=== PATIENT | male | born 1975 | race African-American/Black ===

== ENCOUNTER 2020-11-22 20:40 | Emergency (ER) | payer SELFPAY ==
[2020-11-22] MEDS ORDERED: ONDANSETRON 4 MG/2 ML (SDV) Z0FRAN IVP ONE (21:00)
[2020-11-22] MEDS ORDERED: LORazepam INJ 2 MG/ML (ATIVAN) VIAL IVP ONE (21:00)
[2020-11-22] MEDS ORDERED: fentaNYL INJ 100 MCG/2 ML AMP IVP ONE ×2 (21:00→22:00)
[2020-11-22] MEDS ORDERED: LACTATED RINGERS 1,000 ML IV SCH (21:00)
--- NOTE | 2020-11-22 21:04 | ED Abdominal Pain ---
General Chief Complaint: Abdominal/GI Problems Stated Complaint: VOMITING/ABD PAIN Source of Information: Patient Exam Limitations: No Limitations History of Present Illness Date Seen by Provider: Nov 22, 2020 Time Seen by Provider: 21:03 Initial Comments To ER with severe epigastric abdominal pain that began last night associated wit h vomiting. He is here from [place] and states that he has to go to the emergency room about twice a month when in [place]. He drinks alcohol about a bottle of whiskey daily. His last drink was 3 days ago. Timing/Duration: 1-2 Days Severity/Quality: Moderate Location: Epigastric Radiation: No Radiation Activities at Onset: None Allergies and Home Medications Allergies Coded Allergies: morphine (Verified Allergy, Unknown, 11/22/20) Patient Home Medication List Home Medication List Reviewed: Yes Review of Systems Review of Systems Constitutional: see HPI EENTM: No Symptoms Reported Respiratory: No Symptoms Reported Cardiovascular: No Symptoms Reported Gastrointestinal: See HPI, Abdominal Pain, Nausea, Vomiting Genitourinary: No Symptoms Reported Musculoskeletal: no symptoms reported Skin: no symptoms reported Psychiatric/Neurological: No Symptoms Reported Physical Exam Vital Signs Capillary Refill : Height/Weight/BMI Height: '" Weight: lbs. oz. kg; BMI Method: General Appearance: WD/WN, no apparent distress, other (Screening, wailing, vomiting only saliva into a bucket. Screams with even light touch of the abdomen or placing the sheehan of my stethoscope gently on his abdomen. Screams with IV start, screams with tourniquet application.) Neck: non-tender, full range of motion Respiratory: no respiratory distress, no accessory muscle use Cardiovascular: regular rate, rhythm, no murmur Gastrointestinal: normal bowel sounds, soft Extremities: normal range of motion, non-tender Neurologic/Psychiatric: alert, normal mood/affect, oriented x 3 Skin: normal color, warm/dry Progress/Results/Core Measures Results/Orders Lab Results Laboratory Tests Test 11/22/20 21:08 Range/Units White Blood Count 10.1 4.3-11.0 10^3/uL Red Blood Count 5.34 4.30-5.52 10^6/uL Hemoglobin 16.5 13.3-17.7 g/dL Hematocrit 49 40-54 % Mean Corpuscular Volume 92 80-99 fL Mean Corpuscular Hemoglobin 31 25-34 pg Mean Corpuscular Hemoglobin Concent 34 32-36 g/dL Red Cell Distribution Width 13.3 10.0-14.5 % Platelet Count 491 H 130-400 10^3/uL Mean Platelet Volume 8.8 L 9.0-12.2 fL Immature Granulocyte % (Auto) 0 % Neutrophils (%) (Auto) 74 42-75 % Lymphocytes (%) (Auto) 18 12-44 % Monocytes (%) (Auto) 6 0-12 % Eosinophils (%) (Auto) 1 0-10 % Basophils (%) (Auto) 0 0-10 % Neutrophils # (Auto) 7.5 1.8-7.8 10^3/uL Lymphocytes # (Auto) 1.8 1.0-4.0 10^3/uL Monocytes # (Auto) 0.7 0.0-1.0 10^3/uL Eosinophils # (Auto) 0.1 0.0-0.3 10^3/uL Basophils # (Auto) 0.0 0.0-0.1 10^3/uL Immature Granulocyte # (Auto) 0.0 0.0-0.1 10^3/uL Sodium Level 139 135-145 MMOL/L Potassium Level 3.1 L 3.6-5.0 MMOL/L Chloride Level 102 98-107 MMOL/L Carbon Dioxide Level 25 21-32 MMOL/L Anion Gap 12 5-14 MMOL/L Blood Urea Nitrogen 7 7-18 MG/DL Creatinine 0.91 0.60-1.30 MG/DL Estimat Glomerular Filtration Rate > 60 BUN/Creatinine Ratio 8 Glucose Level 105 70-105 MG/DL Calcium Level 9.9 8.5-10.1 MG/DL Corrected Calcium 9.5 8.5-10.1 MG/DL Total Bilirubin 0.7 0.1-1.0 MG/DL Aspartate Amino Transf (AST/SGOT) 24 5-34 U/L Alanine Aminotransferase (ALT/SGPT) 29 0-55 U/L Alkaline Phosphatase 84 40-136 U/L C-Reactive Protein High Sensitivity 0.02 0.00-0.50 MG/DL Total Protein 8.5 H 6.4-8.2 GM/DL Albumin 4.5 3.2-4.5 GM/DL Lipase 23 8-78 U/L Salicylates Level < 5.0 L 5.0-20.0 MG/DL Acetaminophen Level < 10 L 10-30 UG/ML Serum Alcohol 14 H <10 MG/DL My Orders Orders - GABINO ANGUIANO APRN Lorazepam Injection (Ativan Injection) (11/22/20 21:00) Fentanyl Inj (Sublimaze Injection) (11/22/20 21:00) Lactated Ringers (Lr 1000 Ml Iv Solution (11/22/20 21:00) Ondansetron Injection (Zofran Injectio (11/22/20 21:00) Cbc With Automated Diff (11/22/20 20:51) Comprehensive Metabolic Panel (11/22/20 20:51) Alcohol (11/22/20 20:51) Ua Culture If Indicated (11/22/20 20:51) Drug Screen Stat (Urine) (11/22/20 20:51) Ed Iv/Invasive Line Start (11/22/20 20:51) Protime With Inr (11/22/20 20:51) Hs C Reactive Protein (11/22/20 20:51) Ct Abdomen/Pelvis Wo (11/22/20 20:51) Salicylate (11/22/20 21:31) Acetaminophen (11/22/20 21:31) Antacid Suspension (Mylanta Suspension (11/22/20 22:00) Lidocaine 2% Viscous 15 Ml (Xylocaine Vi (11/22/20 22:00) Lipase (11/22/20 21:53) Fentanyl Inj (Sublimaze Injection) (11/22/20 22:00) Haloperidol Injection (Haldol Injectio (11/22/20 22:30) Medications Given in ED Current Medications Medications Dose Ordered Sig/Wade Route Start Time Stop Time Status Last Admin Dose Admin Al Hydrox/Mg Hydrox/Simethicone 30 ml ONCE ONCE PO 11/22/20 22:00 11/22/20 22:01 DC 11/22/20 22:00 30 ML Fentanyl Citrate 50 mcg ONCE ONCE IVP 11/22/20 22:00 11/22/20 22:01 DC 11/22/20 22:00 50 MCG Fentanyl Citrate 75 mcg ONCE ONCE IVP 11/22/20 21:00 11/22/20 21:01 DC 11/22/20 21:09 75 MCG Lidocaine HCl 15 ml ONCE ONCE PO 11/22/20 22:00 11/22/20 22:01 DC 11/22/20 22:00 15 ML Lorazepam 1 mg ONCE ONCE IVP 11/22/20 21:00 11/22/20 21:01 DC 11/22/20 21:09 1 MG Ondansetron HCl 8 mg ONCE ONCE IVP 11/22/20 21:00 11/22/20 21:01 DC 11/22/20 21:09 8 MG Departure Communication (Admissions) 2154- patient's significant other who brought him to the ER reports that he was upset earlier today when he called her and told her that he had taken 2 of all of his pills. She believes this is a cry for help and that he is suicidal. However she states that he never actually said that. I discussed this with him and he states that he took 2 of his anxiety medications because he is very an xious but he was not trying to harm himself. He does not want to harm himself now nor does he want to harm anyone else. At this time he is feeling much better after the Ativan and fentanyl though he still has some persistent pain. CT is normal, labs unremarkable, lipase is pending. 2216-patient states that he is feeling a little better though he still has some pain. He states that typically he gets her medications through his IV and 1 dose is typically sufficient and lasts him for several days. I asked him if he remembers the name and he states "no". He states he cannot take any medication with morphine in it. I asked if the medication that he gets is called Haldol and he states "you know I think that might be it". We will try a dose of this. NAME: [facility]ON[facility]ÁLEZ [facility] REC#: [id number] PT STATUS: REG ER : 1975 PHYSICIAN: GABINO ANGUIANO APRN ADMIT DATE: 11/22/20/ER Draft Date of Exam:11/22/20 CT ABDOMEN/PELVIS WO PROCEDURE: CT abdomen and pelvis without contrast. TECHNIQUE: Multiple contiguous axial images were obtained through the abdomen and pelvis without the use of intravenous contrast. Auto Exposure Controls were utilized during the CT exam to meet ALARA standards for radiation dose reduction. INDICATION: Upper abdominal pain. COMPARISON: None. FINDINGS: The lung bases are clear. The liver, gallbladder, pancreas, spleen, adrenals, kidneys, collecting systems, bladder and appendix are negative on this noncontrast exam. No free intraperitoneal air or fluid. No lymphadenopathy. No evidence of bowel obstruction. No acute osseous finding. IMPRESSION: No acute CT findings in the abdomen or pelvis on this noncontrast exam. Dictated on workstation # [id number] Dict: 11/22/202136 Trans: 11/22/202141 [facility] [id number] Interpreted by: KELLY PRAJAPATI MD Electronically signed by: Impression Primary Impression: Nausea and vomiting Additional Impression: Abdominal pain Disposition: HOME, SELF-CARE Condition: Stable Departure-Patient Inst. Decision time for Depature: 21:46 Patient Instructions: No Instuctions Given GABINO ANGUIANO [employer] O[employer]ATOR Nov 22, 2020 21:04
[2020-11-22 21:17] LABS: BASOPHILS % (AUTO) 0 % (0-10); EOSINOPHILS # (AUTO) 0.1 10^3/uL (0.0-0.3); EOSINOPHILS % (AUTO) 1 % (0-10); HEMATOCRIT 49 % (40-54); HEMOGLOBIN 16.5 g/dL (13.3-17.7); LYMPHOCYTES # (AUTO) 1.8 10^3/uL (1.0-4.0); LYMPHOCYTES % (AUTO) 18 % (12-44); MEAN CORPUSCULAR HEMOGLOBIN 31 pg (25-34); MEAN CORPUSCULAR HGB CONC 34 g/dL (32-36); MEAN CORPUSCULAR VOLUME 92 fL (80-99); MEAN PLATELET VOLUME 8.8 fL (9.0-12.2); MONOCYTES # (AUTO) 0.7 10^3/uL (0.0-1.0); MONOCYTES % (AUTO) 6 % (0-12); NEUTROPHILS # (AUTO) 7.5 10^3/uL (1.8-7.8); NEUTROPHILS % (AUTO) 74 % (42-75); PLATELET COUNT 491 10^3/uL (130-400); WHITE BLOOD COUNT 10.1 10^3/uL (4.3-11.0)
[2020-11-22 21:42] LABS: ALANINE AMINOTRANSFERASE 29 U/L (0-55); ALBUMIN 4.5 GM/DL (3.2-4.5); ALKALINE PHOSPHATASE 84 U/L (40-136); BILIRUBIN,TOTAL 0.7 MG/DL (0.1-1.0); BUN/CREATININE RATIO 8; CALCIUM 9.9 MG/DL (8.5-10.1); CARBON DIOXIDE 25 MMOL/L (21-32); CHLORIDE 102 MMOL/L (98-107); CREATININE SERUM 0.91 MG/DL (0.60-1.30); GFR ESTIMATED > 60; GLUCOSE 105 MG/DL (70-105); POTASSIUM 3.1 MMOL/L (3.6-5.0); SODIUM 139 MMOL/L (135-145); TOTAL PROTEIN 8.5 GM/DL (6.4-8.2)
--- NOTE | 2020-11-22 21:42 | Diagnostic Imaging Report ---
PROCEDURE: CT abdomen and pelvis without contrast. TECHNIQUE: Multiple contiguous axial images were obtained through the abdomen and pelvis without the use of intravenous contrast. Auto Exposure Controls were utilized during the CT exam to meet ALARA standards for radiation dose reduction. INDICATION: Upper abdominal pain. COMPARISON: None. FINDINGS: The lung bases are clear. The liver, gallbladder, pancreas, spleen, adrenals, kidneys, collecting systems, bladder and appendix are negative on this noncontrast exam. No free intraperitoneal air or fluid. No lymphadenopathy. No evidence of bowel obstruction. No acute osseous finding. IMPRESSION: No acute CT findings in the abdomen or pelvis on this noncontrast exam. Dictated by: Dictated on workstation # [id number]
[2020-11-22 21:54] LABS: SALICYLATE < 5.0 MG/DL (5.0-20.0)
[2020-11-22 21:55] LABS: ACETAMINOPHEN < 10 UG/ML (10-30)
[2020-11-22] MEDS ORDERED: ANTACID SUSP 30 ML UDC (MYLANTA) PO ONE (22:00)
[2020-11-22] MEDS ORDERED: LIDOCAINE 2% VISCOUS 15 ML UDC PO ONE (22:00)
[2020-11-22] MEDS ORDERED: HALOPERIDOL 5 MG/ML (HALDOL) VIAL IV ONE (22:30)
[2020-11-22 22:50] VITALS: BP 135/59
== END 2020-11-22 22:51 | disposition home or self-care (01) ==
LOC: ER 20:43
DX: R11.2 Nausea with vomiting, unspecified (principal); R10.13 Epigastric pain
CPT/HCPCS: 74176; 80053; 83690; 85025; 86141; 99284; G0480 ×3; 36415; 80320; 80329

== ENCOUNTER 2021-02-26 18:23 | Emergency (ER) | payer SELFPAY ==
[~2021-02-26] VITALS: Ht 165 cm; Wt 81.0 kg
--- NOTE | 2021-02-26 18:44 | ED General ---
General Stated Complaint: VOMITING, WEAKNESS, BODY ACHES, CHEST PAIN, CHILLS Source of Information: Patient Exam Limitations: No Limitations (GABINO ANGUIANO APRN) History of Present Illness Date Seen by Provider: Feb 26, 2021 Time Seen by Provider: 18:43 Initial Comments To ER with vomiting, insomnia, weakness, body aches, chills. His girlfriend had Covid last week. He is not vaccinated. He has a history of cyclic vomiting syndrome when he lived in [place], he just moved to this area about 2 months ago. Timing/Duration: 1-2 Days Severity: Moderate Associated Systoms: Nausea/Vomiting (GABINO ANGUIANO APRN) Allergies and Home Medications Allergies Coded Allergies: morphine (Verified Allergy, Unknown, 11/22/20) Patient Home Medication List Home Medication List Reviewed: Yes (GABINO ANGUIANO APRN) Review of Systems Review of Systems Constitutional: see HPI EENTM: see HPI Respiratory: no symptoms reported Cardiovascular: no symptoms reported Genitourinary: no symptoms reported Musculoskeletal: no symptoms reported Skin: no symptoms reported Psychiatric/Neurological: No Symptoms Reported Hematologic/Lymphatic: No Symptoms Reported Immunological/Allergic: no symptoms reported (GABINO ANGUIANO APRN) Past Qikacqr-Oflxsk-Uvhnvl Hx Past Medical History Respiratory: No Cardiac: No Neurological: No Genitourinary: No Gastrointestinal: No Musculoskeletal: No Endocrine: No HEENT: No Cancer: No Psychosocial: Yes Anxiety, Depression Integumentary: No (GABINO ANGUIANO APRN) Physical Exam Vital Signs Vital Signs - First Documented (SAURAV PARDO MD) Vital Signs Capillary Refill : (GABINO ANGUIANO APRN) Height, Weight, BMI Height: '" Weight: lbs. oz. kg; BMI Method: General Appearance: No Apparent Distress, WD/WN Eyes: Bilateral Eye Normal Inspection, Bilateral Eye PERRL, Bilateral Eye EOMI Neck: Full Range of Motion, Normal Inspection Respiratory: Normal Breath Sounds, No Accessory Muscle Use, No Respiratory Distress Cardiovascular: Regular Rate, Rhythm, Normal Peripheral Pulses Gastrointestinal: Normal Bowel Sounds, Non Tender, Soft Neurologic/Psychiatric: Alert, Oriented x3, Other (Running, writhing, will not hold still. ) (GABINO ANGUIANO APRN) Progress/Results/Core Measures Suspected Sepsis SIRS Temperature: Pulse: Respiratory Rate: Laboratory Tests 02/26/21 18:50: White Blood Count 13.5H Blood Pressure / Mean: Laboratory Tests 02/26/21 18:50: Creatinine 1.02, Platelet Count 434H, Total Bilirubin 0.6 (GABINO ANGUIANO APRN) Results/Orders Lab Results Laboratory Tests Test 02/26/21 18:40 02/26/21 18:50 Range/Units Influenza Type A Antigen NEGATIVE NEGATIVE Influenza Type B Antigen NEGATIVE NEGATIVE White Blood Count 13.5 H 4.3-11.0 10^3/uL Red Blood Count 5.45 4.30-5.52 10^6/uL Hemoglobin 17.1 13.3-17.7 g/dL Hematocrit 50 40-54 % Mean Corpuscular Volume 92 80-99 fL Mean Corpuscular Hemoglobin 31 25-34 pg Mean Corpuscular Hemoglobin Concent 34 32-36 g/dL Red Cell Distribution Width 13.2 10.0-14.5 % Platelet Count 434 H 130-400 10^3/uL Mean Platelet Volume 9.0 9.0-12.2 fL Immature Granulocyte % (Auto) 0 % Neutrophils (%) (Auto) 90 H 42-75 % Lymphocytes (%) (Auto) 6 L 12-44 % Monocytes (%) (Auto) 3 0-12 % Eosinophils (%) (Auto) 0 0-10 % Basophils (%) (Auto) 0 0-10 % Neutrophils # (Auto) 12.2 H 1.8-7.8 10^3/uL Lymphocytes # (Auto) 0.8 L 1.0-4.0 10^3/uL Monocytes # (Auto) 0.5 0.0-1.0 10^3/uL Eosinophils # (Auto) 0.0 0.0-0.3 10^3/uL Basophils # (Auto) 0.0 0.0-0.1 10^3/uL Immature Granulocyte # (Auto) 0.1 0.0-0.1 10^3/uL Neutrophils % (Manual) 83 % Lymphocytes % (Manual) 8 % Monocytes % (Manual) 9 % Blood Morphology Comment NORMAL Erythrocyte Sedimentation Rate 1 0-15 MM/HR Sodium Level 140 135-145 MMOL/L Potassium Level 4.5 3.6-5.0 MMOL/L Chloride Level 103 98-107 MMOL/L Carbon Dioxide Level 24 21-32 MMOL/L Anion Gap 13 5-14 MMOL/L Blood Urea Nitrogen 12 7-18 MG/DL Creatinine 1.02 0.60-1.30 MG/DL Estimat Glomerular Filtration Rate 95 BUN/Creatinine Ratio 12 Glucose Level 134 H 70-105 MG/DL Calcium Level 10.7 H 8.5-10.1 MG/DL Corrected Calcium 8.5-10.1 MG/DL Total Bilirubin 0.6 0.1-1.0 MG/DL Aspartate Amino Transf (AST/SGOT) 20 5-34 U/L Alanine Aminotransferase (ALT/SGPT) 29 0-55 U/L Alkaline Phosphatase 91 40-136 U/L C-Reactive Protein High Sensitivity 0.02 0.00-0.50 MG/DL Total Protein 8.9 H 6.4-8.2 GM/DL Albumin 4.7 H 3.2-4.5 GM/DL Lipase 29 8-78 U/L Serum Alcohol < 10 <10 MG/DL (SAURAV PARDO MD) Vital Signs/I&O 02/26/21 02/26/21 02/26/21 19:01 19:01 21:59 Temp 36.1 36.1 36.1 Pulse 64 64 96 Resp 16 16 16 B/P (MAP) 160/104 160/104 (122) 158/95 Pulse Ox 99 99 98 O2 Delivery Room Air Room Air Room Air 02/26/21 23:59 Intake Total 1000 ml Balance 1000 ml (SAURAV PARDO MD) Vital Signs/I&O Capillary Refill : (GABINO ANGUIANO APRN) Departure Communication (Admissions) 2051-sleeping at this time. Awakens to verbal stimuli, states that he feels better. We will discharge to home. (GABINO ANGUIANO APRN) Impression Primary Impression: Nausea and vomiting Disposition: HOME, SELF-CARE Condition: Stable Departure-Patient Inst. Decision time for Depature: 20:52 (GABINO ANGUIANO APRN) Patient Instructions: No Instuctions Given ATTENDING PHYSICIAN NOTE: I was physically present as attending physician in the emergency department during the care of this patient, but I was not directly involved in the decision making or delivery of care for this patient. (SAURAV PARDO MD) GABINO ANGUIANO APRN Feb 26, 2021 18:44 SAURAV PARDO MD Feb 27, 2021 08:40
[2021-02-26] MEDS: diphenhydrAMINE 50 MG/ML INJ (BENADRYL) IVP ONE (18:51)
[2021-02-26] MEDS: NS IV 1000 ML 1,000 ML IV SCH (18:51)
[2021-02-26] MEDS: HALOPERIDOL 5 MG/ML (HALDOL) VIAL IV ONE (18:52)
[2021-02-26 19:02] LABS: BASOPHILS % (AUTO) 0 % (0-10); EOSINOPHILS % (AUTO) 0 % (0-10); HEMATOCRIT 50 % (40-54); HEMOGLOBIN 17.1 g/dL (13.3-17.7); LYMPHOCYTES # (AUTO) 0.8 10^3/uL (1.0-4.0); LYMPHOCYTES % (AUTO) 6 % (12-44); MEAN CORPUSCULAR HEMOGLOBIN 31 pg (25-34); MEAN CORPUSCULAR HGB CONC 34 g/dL (32-36); MEAN CORPUSCULAR VOLUME 92 fL (80-99); MONOCYTES # (AUTO) 0.5 10^3/uL (0.0-1.0); MONOCYTES % (AUTO) 3 % (0-12); NEUTROPHILS # (AUTO) 12.2 10^3/uL (1.8-7.8); NEUTROPHILS % (AUTO) 90 % (42-75); PLATELET COUNT 434 10^3/uL (130-400); WHITE BLOOD COUNT 13.5 10^3/uL (4.3-11.0)
[2021-02-26 19:11] LABS: ALBUMIN 4.7 GM/DL (3.2-4.5); CHLORIDE 103 MMOL/L (98-107); POTASSIUM 4.5 MMOL/L (3.6-5.0); SODIUM 140 MMOL/L (135-145)
[2021-02-26 19:12] LABS: CALCIUM 10.7 MG/DL (8.5-10.1)
[2021-02-26 19:14] LABS: GLUCOSE 134 MG/DL (70-105); TOTAL PROTEIN 8.9 GM/DL (6.4-8.2)
[2021-02-26 19:15] LABS: BILIRUBIN,TOTAL 0.6 MG/DL (0.1-1.0); CARBON DIOXIDE 24 MMOL/L (21-32)
[2021-02-26 19:17] LABS: ALKALINE PHOSPHATASE 91 U/L (40-136); CREATININE SERUM 1.02 MG/DL (0.60-1.30); GFR ESTIMATED 95
[2021-02-26 19:18] LABS: BUN/CREATININE RATIO 12
[2021-02-26 19:19] LABS: LYMPHOCYTES % (MANUAL) 8 %; MONOCYTES % (MANUAL) 9 %; NEUTROPHILS % (MANUAL) 83 %
[2021-02-26 19:20] LABS: ALANINE AMINOTRANSFERASE 29 U/L (0-55); RBC MORPH NORMAL
[2021-02-26 19:21] LABS: LIPASE 29 U/L (8-78)
[2021-02-26 19:29] LABS: ERYTHROCYTE SEDIMENTATION RATE 1 MM/HR (0-15)
--- NOTE | 2021-02-26 20:15 | Diagnostic Imaging Report ---
INDICATION: Weakness AP view of the chest is obtained. COMPARISON: No previous study is available for comparison at this time. FINDINGS: Heart size and pulmonary vasculature are within normal limits, and the lungs are clear, bilaterally. IMPRESSION: Unremarkable chest. Dictated by: Dictated on workstation # [id number]
[2021-02-26 21:59] VITALS: BP 158/95
== END 2021-02-26 21:59 | disposition home or self-care (01) ==
LOC: EDUNIT# 18:23 → ER 18:27
DX: R11.2 Nausea with vomiting, unspecified (principal); Z20.822 Contact with and (suspected) exposure to COVID-19
CPT/HCPCS: 71045; 80053; 83690; 85007; 85027; 85652; 86141; 87635; 87804; 93005; 99284; G0480; 36415; 80320

== ENCOUNTER 2021-03-07 08:52 | Emergency (ER) | payer SELFPAY ==
[~2021-03-07] VITALS: Ht 165 cm; Wt 74.0 kg
[2021-03-07] MEDS ORDERED: LACTATED RINGERS 1,000 ML IV ONE (09:00)
[2021-03-07] MEDS ORDERED: PANTOPRAZOLE 40 MG (PROTONIX) VIAL IV ONE (09:00)
[2021-03-07] MEDS ORDERED: fentaNYL INJ 100 MCG/2 ML AMP IVP ONE (09:00)
[2021-03-07] MEDS ORDERED: ONDANSETRON 4 MG/2 ML (SDV) Z0FRAN IVP ONE (09:00)
--- NOTE | 2021-03-07 09:15 | ED Abdominal Pain ---
General Chief Complaint: Abdominal/GI Problems Stated Complaint: VOMITTING Nursing Triage Note: ARRIVED VIA EMS FROM HOME WITH COMPLAINTS OF N/V. PT YELLING AND VERY ANXIOUS Source of Information: Patient, EMS Exam Limitations: No Limitations History of Present Illness Date Seen by Provider: Mar 07, 2021 Time Seen by Provider: 08:50 Initial Comments Patient to the ER by EMS from home with chief complaint that he was very anxious and yelling per EMS. Complaining of epigastric abdominal pain severe 10 out of 10 as well as vomiting since last night. He been having episodes of this for years. He had a endoscopy in the that demonstrated stomach ulcers. He has not taken anything for it today. He says he was here in the ER recently and they gave him some medicine through his IV which helped his pain. EMS was unable to establish an IV on route. According to previous visits he has a history of cyclical vomiting and recently moved here from [place], [place]. Patient states he drinks a bottle of whiskey daily. He had a negative CT of his abdomen and pelvis for similar presentation and November, 4 months ago. He has responded well to Haldol in the past for his cyclical vomiting. Allergies and Home Medications Allergies Coded Allergies: morphine (Verified Allergy, Unknown, 11/22/20) Patient Home Medication List Home Medication List Reviewed: Yes Review of Systems Review of Systems Constitutional: No chills, No diaphoresis EENTM: No Blurred Vision, No Double Vision Respiratory: Denies Cough, Denies Shortness of Air Cardiovascular: Denies Chest Pain, Denies Edema Gastrointestinal: See HPI, Abdominal Pain; Denies Constipated; Nausea, Poor Fluid Intake, Vomiting Genitourinary: Denies Burning, Denies Discharge Musculoskeletal: No back pain, No joint pain Psychiatric/Neurological: Anxiety All Other Systems Reviewed Negative Unless Noted: Yes Past Npelnlh-Dyazlb-Aozbrd Hx Patient Social History Tobacco Use?: Yes Tobacco type used: Cigarettes Smoking Status: Current Everyday Smoker (Half pack a day) Alcohol Use?: Yes Alcohol type: Hard Liquor Alcohol Frequency: Couple times a week Past Medical History Surgery/Hospitalization HX: Denies. Respiratory: No Cardiac: No Neurological: No Genitourinary: No Gastrointestinal: No Musculoskeletal: No Endocrine: No HEENT: No Cancer: No Psychosocial: Yes Anxiety, Depression Integumentary: No Physical Exam Vital Signs Vital Signs - First Documented 03/07/21 09:00 Temp 36.2 Pulse 81 Resp 16 B/P (MAP) 143/75 (97) Pulse Ox 98 O2 Delivery Room Air Capillary Refill : Less Than 3 Seconds Height/Weight/BMI Height: '" Weight: lbs. oz. kg; 27.00 BMI Method: General Appearance: moderate distress, thin HEENT: PERRL/EOMI; No pharynx normal (Dry oral mucosa) Neck: full range of motion, supple, normal inspection Respiratory: lungs clear, normal breath sounds, no respiratory distress, no accessory muscle use Cardiovascular: normal peripheral pulses, regular rate, rhythm Gastrointestinal: normal bowel sounds, guarding, tenderness, other (Retching, producing small amounts of spittle or saliva.) Extremities: normal range of motion, non-tender, normal inspection, normal capillary refill Neurologic/Psychiatric: alert, oriented x 3, other (Anxious, screaming with all interventions, cooperative) Skin: normal color, warm/dry Progress/Results/Core Measures Results/Orders Lab Results Laboratory Tests Test 03/07/21 09:00 Range/Units White Blood Count 12.0 H 4.3-11.0 10^3/uL Red Blood Count 4.97 4.30-5.52 10^6/uL Hemoglobin 15.5 13.3-17.7 g/dL Hematocrit 46 40-54 % Mean Corpuscular Volume 93 80-99 fL Mean Corpuscular Hemoglobin 31 25-34 pg Mean Corpuscular Hemoglobin Concent 34 32-36 g/dL Red Cell Distribution Width 12.8 10.0-14.5 % Platelet Count 441 H 130-400 10^3/uL Mean Platelet Volume 9.4 9.0-12.2 fL Immature Granulocyte % (Auto) 0 % Neutrophils (%) (Auto) 87 H 42-75 % Lymphocytes (%) (Auto) 8 L 12-44 % Monocytes (%) (Auto) 4 0-12 % Eosinophils (%) (Auto) 0 0-10 % Basophils (%) (Auto) 1 0-10 % Neutrophils # (Auto) 10.4 H 1.8-7.8 10^3/uL Lymphocytes # (Auto) 1.0 1.0-4.0 10^3/uL Monocytes # (Auto) 0.5 0.0-1.0 10^3/uL Eosinophils # (Auto) 0.0 0.0-0.3 10^3/uL Basophils # (Auto) 0.1 0.0-0.1 10^3/uL Immature Granulocyte # (Auto) 0.0 0.0-0.1 10^3/uL Neutrophils % (Manual) 86 % Lymphocytes % (Manual) 10 % Monocytes % (Manual) 4 % Eosinophils % (Manual) 0 % Basophils % (Manual) 0 % Band Neutrophils 0 % Blood Morphology Comment NORMAL Sodium Level 139 135-145 MMOL/L Potassium Level 3.8 3.6-5.0 MMOL/L Chloride Level 101 98-107 MMOL/L Carbon Dioxide Level 25 21-32 MMOL/L Anion Gap 13 5-14 MMOL/L Blood Urea Nitrogen 10 7-18 MG/DL Creatinine 0.93 0.60-1.30 MG/DL Estimat Glomerular Filtration Rate 106 BUN/Creatinine Ratio 11 Glucose Level 116 H 70-105 MG/DL Calcium Level 10.3 H 8.5-10.1 MG/DL Corrected Calcium 10.1 8.5-10.1 MG/DL Total Bilirubin 0.5 0.1-1.0 MG/DL Aspartate Amino Transf (AST/SGOT) 20 5-34 U/L Alanine Aminotransferase (ALT/SGPT) 22 0-55 U/L Alkaline Phosphatase 63 40-136 U/L C-Reactive Protein High Sensitivity 0.02 0.00-0.50 MG/DL Total Protein 7.7 6.4-8.2 GM/DL Albumin 4.3 3.2-4.5 GM/DL Lipase 32 8-78 U/L Serum Alcohol < 10 <10 MG/DL My Orders Orders - THOMAS PLAZA Ed Iv/Invasive Line Start (03/07/21 09:00) Lactated Ringers (Lr 1000 Ml Iv Solution (03/07/21 09:00) Fentanyl Inj (Sublimaze Injection) (03/07/21 09:00) Ondansetron Injection (Zofran Injectio (03/07/21 09:00) Pantoprazole Injection (Protonix Injecti (03/07/21 09:00) Cbc With Automated Diff (03/07/21 09:00) Comprehensive Metabolic Panel (03/07/21 09:00) Hs C Reactive Protein (03/07/21 09:00) Ua Culture If Indicated (03/07/21 09:00) Drug Screen Stat (Urine) (03/07/21 09:00) Alcohol (03/07/21 09:00) Lipase (03/07/21 09:00) Droperidol Inj (Ed Only) (Inapsine Inj ( (03/07/21 09:45) Diphenhydramine Injection (Benadryl Inje (03/07/21 09:45) Manual Differential (03/07/21 09:00) Medications Given in ED Current Medications Medications Dose Ordered Sig/Wade Route Start Time Stop Time Status Last Admin Dose Admin Diphenhydramine HCl 25 mg ONCE ONCE IVP 03/07/21 09:45 03/07/21 09:46 DC 03/07/21 09:47 25 MG Droperidol 2.5 mg ONCE ONCE IV 03/07/21 09:45 03/07/21 09:46 DC 03/07/21 09:49 2.5 MG Fentanyl Citrate 50 mcg ONCE ONCE IVP 03/07/21 09:00 03/07/21 09:04 DC 03/07/21 09:12 50 MCG Lactated Ringer's 1,000 ml @ 0 mls/hr Q0M ONCE IV 03/07/21 09:00 03/07/21 09:04 DC 03/07/21 09:16 1,000 MLS/HR Ondansetron HCl 8 mg ONCE ONCE IVP 03/07/21 09:00 03/07/21 09:04 DC 03/07/21 09:13 8 MG Pantoprazole 40 mg ONCE ONCE IV 03/07/21 09:00 03/07/21 09:04 DC 03/07/21 09:15 40 MG Vital Signs/I&O 03/07/21 09:00 Temp 36.2 Pulse 81 Resp 16 B/P (MAP) 143/75 (97) Pulse Ox 98 O2 Delivery Room Air Progress Progress Note #1: Time: 09:14 Progress Note We will start with a round of fentanyl and Zofran and a liter of fluids. He is gotten results from Haldol so we may try droperidol if this does not relieve his symptoms. Pantoprazole IV. If we get his nausea under control we could consider a GI cocktail and set him up for follow-up with local general surgery. Progress Note #2: Time: 09:38 Progress Note After the first dose of fentanyl and Zofran the patient's pain had gone away his nausea had subsided and he had actually fallen asleep. About 20 to 30 minutes later he woke up howling in pain again. He is retching again so we will give him some droperidol and Benadryl IV. Progress Note #3: Time: 11:09 Progress Note Since the droperidol and Benadryl the patient has been sleeping comfortably with no vomiting nausea or pain. Blood work was reviewed with him and he was encouraged to follow-up with Dr. Ashley to consider EGD. We will put him on Carafate and omeprazole. Zofran. Departure Impression Primary Impression: Gastritis Qualified Codes: K29.50 - Unspecified chronic gastritis without bleeding Disposition: HOME, SELF-CARE Condition: Improved Departure-Patient Inst. Decision time for Depature: 11:10 Referrals: MYA ASHLEY,LOCAL PHYSICIAN (PCP) Primary Care Physician Patient Instructions: Gastritis (DC) Add. Discharge Instructions: If you have continued nausea you may take 1 to 2 tablets of Zofran under the tongue every 6 hours as necessary. Start taking omeprazole 20 mg twice a day for the next month to reduce stomach acid and therefore pain. Carafate half an hour before meals and at bedtime for the next 2 weeks to protect the lining of your stomach. Call Dr. Ashley, general surgery and schedule follow-up appointment in the next week or 2 to discuss whether an EGD or other work-up would be appropriate given your history of stomach ulcers. All discharge instructions reviewed with patient and/or family. Voiced understanding. Scripts Omeprazole (Omeprazole) 20 Mg Capsule.dr 20 MG PO BID for 30 Days, #60 CAP 0 Refills Prov: THOMAS PLAZA 03/07/21 Sucralfate (Carafate) 1 Gm Tablet 1 GM PO QIDACHS for 14 Days, #56 TAB 0 Refills Prov: THOMAS PLAZA 03/07/21 Ondansetron (Ondansetron Odt) 4 Mg Tab.rapdis 4-8 MG PO Q6H PRN for NAUSEA/VOMITING, #20 TAB 0 Refills Prov: THOMAS PLAZA 03/07/21 Copy Copies To 1: MYA ASHLEY TITUS J Mar 07, 2021 09:14
[2021-03-07 09:35] LABS: BASOPHILS # (AUTO) 0.1 10^3/uL (0.0-0.1); BASOPHILS % (AUTO) 1 % (0-10); EOSINOPHILS % (AUTO) 0 % (0-10); HEMATOCRIT 46 % (40-54); HEMOGLOBIN 15.5 g/dL (13.3-17.7); LYMPHOCYTES % (AUTO) 8 % (12-44); MEAN CORPUSCULAR HEMOGLOBIN 31 pg (25-34); MEAN CORPUSCULAR HGB CONC 34 g/dL (32-36); MEAN CORPUSCULAR VOLUME 93 fL (80-99); MEAN PLATELET VOLUME 9.4 fL (9.0-12.2); MONOCYTES # (AUTO) 0.5 10^3/uL (0.0-1.0); MONOCYTES % (AUTO) 4 % (0-12); NEUTROPHILS # (AUTO) 10.4 10^3/uL (1.8-7.8); NEUTROPHILS % (AUTO) 87 % (42-75); PLATELET COUNT 441 10^3/uL (130-400)
[2021-03-07 09:38] LABS: ALBUMIN 4.3 GM/DL (3.2-4.5); CHLORIDE 101 MMOL/L (98-107); POTASSIUM 3.8 MMOL/L (3.6-5.0); SODIUM 139 MMOL/L (135-145)
[2021-03-07 09:40] LABS: CALCIUM 10.3 MG/DL (8.5-10.1)
[2021-03-07 09:41] LABS: GLUCOSE 116 MG/DL (70-105); TOTAL PROTEIN 7.7 GM/DL (6.4-8.2)
[2021-03-07 09:42] LABS: CARBON DIOXIDE 25 MMOL/L (21-32)
[2021-03-07 09:43] LABS: BILIRUBIN,TOTAL 0.5 MG/DL (0.1-1.0)
[2021-03-07 09:44] LABS: ALKALINE PHOSPHATASE 63 U/L (40-136)
[2021-03-07 09:45] LABS: CREATININE SERUM 0.93 MG/DL (0.60-1.30); GFR ESTIMATED 106
[2021-03-07] MEDS ORDERED: DROPERIDOL 5 MG/2 ML (INAPSINE) ED ONLY! IV ONE (09:45)
[2021-03-07] MEDS ORDERED: diphenhydrAMINE 50 MG/ML INJ (BENADRYL) IVP ONE (09:45)
[2021-03-07 09:46] LABS: BUN/CREATININE RATIO 11
[2021-03-07 09:48] LABS: ALANINE AMINOTRANSFERASE 22 U/L (0-55); LIPASE 32 U/L (8-78)
[2021-03-07 10:36] LABS: BAND NEUTROPHILS 0 %; BASOPHILS % (MANUAL) 0 %; EOSINOPHILS % (MANUAL) 0 %; LYMPHOCYTES % (MANUAL) 10 %; MONOCYTES % (MANUAL) 4 %; NEUTROPHILS % (MANUAL) 86 %; RBC MORPH NORMAL
[2021-03-07] MEDS ORDERED: ONDA4TAB11 PO (11:16)
[2021-03-07] MEDS ORDERED: OMEP20CA18 PO (11:16)
[2021-03-07] MEDS ORDERED: SUCR1TAB36 PO (11:16)
[2021-03-07 11:21] VITALS: BP 150/82
== END 2021-03-07 11:20 | disposition home or self-care (01) ==
LOC: EDUNIT# 08:52 → ER 08:57
DX: K29.70 Gastritis, unspecified, without bleeding (principal); F17.210 Nicotine dependence, cigarettes, uncomplicated
CPT/HCPCS: 80053; 83690; 85007; 85027; 86141; 99284; G0480; 36415; 80320

== ENCOUNTER 2021-03-14 08:17 | Emergency (ER) | payer SELFPAY ==
[~2021-03-14] VITALS: Ht 165.1 cm; Wt 72.6 kg
[~2021-03-14 08:17] MED LIST: OMEP20CA18 PO; ONDA4TAB11 PO; SUCR1TAB36 PO
--- NOTE | 2021-03-14 08:28 | ED Abdominal Pain ---
General Chief Complaint: Abdominal/GI Problems Stated Complaint: VOMITING History of Present Illness Date Seen by Provider: Mar 14, 2021 Time Seen by Provider: 08:22 Initial Comments 45-year-old male presents with vomiting. Patient reports that "his ulcer is acting up". patient was seen on 03/10/2021 at [facility] with exactly the same presentation.. He was given Carafate and omeprazole at that time. Patient reports that his girlfriend kicked him out of the house and that he does not have his medications and that he just recently moved to [place]. Patient states he is having some abdominal discomfort especially in the upper quadrant. He has been vomiting today. No reports of fevers chills or other systemic complaints. Patient drinks alcohol daily and has a history of cyclic vomiting. Allergies and Home Medications Allergies Coded Allergies: morphine (Verified Allergy, Unknown, 11/22/20) Patient Home Medication List Home Medication List Reviewed: Yes Omeprazole (Omeprazole) 20 Mg Capsule.dr, 20 MG PO BID Prescribed by: THOMAS PLAZA on 03/07/21 1116 Ondansetron (Ondansetron Odt) 4 Mg Tab.rapdis, 4-8 MG PO Q6H PRN for NAUSEA/VOMITING Prescribed by: THOMAS PLAZA on 03/07/21 1116 Sucralfate (Carafate) 1 Gm Tablet, 1 GM PO QIDACHS Prescribed by: THOMAS PLAZA on 03/07/21 1116 Review of Systems Review of Systems Constitutional: No chills, No fever Respiratory: Denies Cough, Denies Shortness of Air Cardiovascular: Denies Chest Pain Gastrointestinal: Abdominal Pain, Nausea, Vomiting Genitourinary: No Symptoms Reported Musculoskeletal: no symptoms reported Skin: no symptoms reported Psychiatric/Neurological: No Symptoms Reported Endocrine: No Symptoms Reported Past Oudhmbt-Lecect-Gvpail Hx Past Medical History Surgery/Hospitalization HX: Denies. Respiratory: No Cardiac: No Neurological: No Genitourinary: No Gastrointestinal: No Musculoskeletal: No Endocrine: No HEENT: No Cancer: No Psychosocial: Yes Anxiety, Depression Integumentary: No Physical Exam Vital Signs Vital Signs - First Documented 03/14/21 08:20 Temp 36.2 Pulse 87 Resp 16 B/P (MAP) 141/107 (118) Pulse Ox 100 O2 Delivery Room Air Capillary Refill : Height/Weight/BMI Height: '" Weight: lbs. oz. kg; 27.00 BMI Method: General Appearance: mild distress Respiratory: lungs clear, normal breath sounds Cardiovascular: normal peripheral pulses, regular rate, rhythm Gastrointestinal: soft, tenderness (diffuse ) Extremities: normal range of motion, non-tender Neurologic/Psychiatric: alert, normal mood/affect, oriented x 3 Skin: normal color, warm/dry Progress/Results/Core Measures Results/Orders Lab Results Laboratory Tests Test 03/14/21 08:29 Range/Units White Blood Count 12.3 H 4.3-11.0 10^3/uL Red Blood Count 5.18 4.30-5.52 10^6/uL Hemoglobin 16.0 13.3-17.7 g/dL Hematocrit 47 40-54 % Mean Corpuscular Volume 90 80-99 fL Mean Corpuscular Hemoglobin 31 25-34 pg Mean Corpuscular Hemoglobin Concent 34 32-36 g/dL Red Cell Distribution Width 12.7 10.0-14.5 % Platelet Count 433 H 130-400 10^3/uL Mean Platelet Volume 9.2 9.0-12.2 fL Immature Granulocyte % (Auto) 0 % Neutrophils (%) (Auto) 86 H 42-75 % Lymphocytes (%) (Auto) 8 L 12-44 % Monocytes (%) (Auto) 5 0-12 % Eosinophils (%) (Auto) 0 0-10 % Basophils (%) (Auto) 0 0-10 % Neutrophils # (Auto) 10.6 H 1.8-7.8 X 10^3 Lymphocytes # (Auto) 1.0 1.0-4.0 X 10^3 Monocytes # (Auto) 0.7 0.0-1.0 X 10^3 Eosinophils # (Auto) 0.0 0.0-0.3 10^3/uL Basophils # (Auto) 0.1 0.0-0.1 10^3/uL Immature Granulocyte # (Auto) 0.0 0.0-0.1 10^3/uL Neutrophils % (Manual) 91 % Lymphocytes % (Manual) 6 % Monocytes % (Manual) 3 % Platelet Estimate INCREASED Blood Morphology Comment NORMAL Sodium Level 139 135-145 MMOL/L Potassium Level 3.7 3.6-5.0 MMOL/L Chloride Level 96 L 98-107 MMOL/L Carbon Dioxide Level 28 21-32 MMOL/L Anion Gap 15 H 5-14 MMOL/L Blood Urea Nitrogen 13 7-18 MG/DL Creatinine 0.91 0.60-1.30 MG/DL Estimat Glomerular Filtration Rate 109 BUN/Creatinine Ratio 14 Glucose Level 140 H 70-105 MG/DL Calcium Level 10.3 H 8.5-10.1 MG/DL Corrected Calcium 8.5-10.1 MG/DL Total Bilirubin 0.8 0.1-1.0 MG/DL Aspartate Amino Transf (AST/SGOT) 27 5-34 U/L Alanine Aminotransferase (ALT/SGPT) 19 0-55 U/L Alkaline Phosphatase 89 40-136 U/L Total Protein 8.7 H 6.4-8.2 GM/DL Albumin 4.9 H 3.2-4.5 GM/DL Lipase 33 8-78 U/L My Orders Orders - YING,KENISHA L DO Cbc With Automated Diff (03/14/21 08:29) Comprehensive Metabolic Panel (03/14/21 08:29) Lipase (03/14/21 08:29) Ondansetron Injection (Zofran Injectio (03/14/21 08:30) Lactated Ringers (Lr 1000 Ml Iv Solution (03/14/21 08:29) Famotidine Injection (Pepcid Injection) (03/14/21 08:29) Hyoscyamine Sl Tablet (Levsin Sl Tablet) (03/14/21 08:30) Abdomen (Kub) 1 View (03/14/21 08:29) Manual Differential (03/14/21 08:29) Diphenhydramine Injection (Benadryl Inje (03/14/21 09:00) Metoclopramide Injection (Reglan Injecti (03/14/21 09:00) Sucralfate Tablet (Carafate Tablet) (03/14/21 09:30) Medications Given in ED Current Medications Medications Dose Ordered Sig/Wade Route Start Time Stop Time Status Last Admin Dose Admin Hyoscyamine Sulfate 0.125 mg ONCE ONCE SL 03/14/21 08:30 03/14/21 08:31 DC 03/14/21 08:40 0.125 MG Ondansetron HCl 4 mg ONCE ONCE IVP 03/14/21 08:30 03/14/21 08:31 DC 03/14/21 08:39 4 MG Vital Signs/I&O 03/14/21 08:20 Temp 36.2 Pulse 87 Resp 16 B/P (MAP) 141/107 (118) Pulse Ox 100 O2 Delivery Room Air Progress Progress Note : Progress Note Patient is sleeping in room with no difficulty from following treatment. When I went in to discuss discharge planning and to prescribe him Carafate. Patient became very dramatic acting like he is in significant pain despite me having to wake him up to discuss plans with him. Patient will be discharged with a prescription for Carafate since he supposedly does not have his other one at this time.. He was offered an additional GI cocktail which he declined. Discussed with patient that I will not be providing him any narcotics. Patient should follow-up with his GI specialist or general surgeon for further outpatient management Diagnostic Imaging Diagonstic Imaging: Xray Plain Films/CT/US/NM/MRI: abdomen Comments ABDOMEN (KUB) 1 VIEW INDICATION: Vomiting KUB 8:42 AM Bowel gas pattern is normal. There are no pathologic masses or calcifications. IMPRESSION: No acute abnormalities in the abdomen. Reviewed: Reviewed by Me, Reviewed/Discussed Departure Impression Primary Impression: Alcohol-induced gastric ulcer Additional Impression: Cyclic vomiting syndrome Disposition: 01 HOME, SELF-CARE Condition: Stable Departure-Patient Inst. Referrals: NO,LOCAL PHYSICIAN (PCP/Family) Primary Care Physician Patient Instructions: Alcohol Use Disorder (DC), Gastric Ulcer ED Add. Discharge Instructions: Please follow-up with Dr. Ashley as instructed in your previous ER visit Please consider stopping alcohol use All discharge instructions reviewed with patient and/or family. Voiced unders tanding. Scripts Sucralfate (Carafate) 1 Gm/10 Ml Oral.susp 1 GM PO ACHS, #100 ML Prov: YING,KENISHA L DO 03/14/21 YING,KENISHA L DO Mar 14, 2021 08:28
[2021-03-14] MEDS ORDERED: LACTATED RINGERS 1,000 ML IV STA (08:29)
[2021-03-14] MEDS ORDERED: FAMOTIDINE 20MG/2ML IV (PEPCID) IV STA (08:29)
[2021-03-14] MEDS ORDERED: ONDANSETRON 4 MG/2 ML (SDV) Z0FRAN IVP ONE (08:30)
[2021-03-14] MEDS ORDERED: HYOSCYAMINE 0.125 MG (LEVSIN) TAB SL ONE (08:30)
--- NOTE | 2021-03-14 08:45 | Diagnostic Imaging Report ---
INDICATION: Vomiting KUB 8:42 AM Bowel gas pattern is normal. There are no pathologic masses or calcifications. IMPRESSION: No acute abnormalities in the abdomen. Dictated by: Dictated on workstation # [id number]
[2021-03-14 08:55] LABS: BASOPHILS # (AUTO) 0.1 10^3/uL (0.0-0.1); BASOPHILS % (AUTO) 0 % (0-10); EOSINOPHILS % (AUTO) 0 % (0-10); HEMATOCRIT 47 % (40-54); LYMPHOCYTES % (AUTO) 8 % (12-44); MEAN CORPUSCULAR HEMOGLOBIN 31 pg (25-34); MEAN CORPUSCULAR HGB CONC 34 g/dL (32-36); MEAN CORPUSCULAR VOLUME 90 fL (80-99); MEAN PLATELET VOLUME 9.2 fL (9.0-12.2); MONOCYTES # (AUTO) 0.7 X 10^3 (0.0-1.0); MONOCYTES % (AUTO) 5 % (0-12); NEUTROPHILS # (AUTO) 10.6 X 10^3 (1.8-7.8); NEUTROPHILS % (AUTO) 86 % (42-75); PLATELET COUNT 433 10^3/uL (130-400); WHITE BLOOD COUNT 12.3 10^3/uL (4.3-11.0)
[2021-03-14] MEDS ORDERED: METOCLOPRAMIDE INJ 10 MG/2 ML (REGLAN) IVP STA (09:00)
[2021-03-14] MEDS ORDERED: diphenhydrAMINE 50 MG/ML INJ (BENADRYL) IV STA (09:00)
[2021-03-14 09:04] LABS: ALANINE AMINOTRANSFERASE 19 U/L (0-55); ALKALINE PHOSPHATASE 89 U/L (40-136); BILIRUBIN,TOTAL 0.8 MG/DL (0.1-1.0); BUN/CREATININE RATIO 14; CALCIUM 10.3 MG/DL (8.5-10.1); CARBON DIOXIDE 28 MMOL/L (21-32); CHLORIDE 96 MMOL/L (98-107); CREATININE SERUM 0.91 MG/DL (0.60-1.30); GFR ESTIMATED 109; GLUCOSE 140 MG/DL (70-105); POTASSIUM 3.7 MMOL/L (3.6-5.0); SODIUM 139 MMOL/L (135-145)
[2021-03-14 09:05] LABS: ALBUMIN 4.9 GM/DL (3.2-4.5); LIPASE 33 U/L (8-78); TOTAL PROTEIN 8.7 GM/DL (6.4-8.2)
[2021-03-14 09:24] LABS: LYMPHOCYTES % (MANUAL) 6 %; MONOCYTES % (MANUAL) 3 %; NEUTROPHILS % (MANUAL) 91 %
[2021-03-14 09:25] LABS: PLATELET ESTIMATE INCREASED; RBC MORPH NORMAL
[2021-03-14] MEDS ORDERED: SUCRALFATE 1 GM (CARAFATE) TAB PO ONE (09:30)
[2021-03-14] MEDS ORDERED: SUCR1ORA5 PO (09:46)
[2021-03-14 09:48] VITALS: BP 148/94
== END 2021-03-14 09:53 | disposition home or self-care (01) ==
LOC: EDUNIT# 08:17 → ER FS 08:19
DX: K25.9 Gastric ulcer, unspecified as acute or chronic, without hemorrhage or perforation (principal); F10.20 Alcohol dependence, uncomplicated
CPT/HCPCS: 36415; 74018; 80053; 83690; 85007; 85027

== ENCOUNTER 2021-05-26 03:00 | Observation (INO) | payer SELFPAY ==
[~2021-05-26] VITALS: Ht 165 cm; Wt 71.9 kg
[~2021-05-26 03:00] MED LIST changes: +SUCR1ORA5 PO
[2021-05-26] MEDS ORDERED: PANTOPRAZOLE 40 MG (PROTONIX) VIAL IV ONE (03:15)
[2021-05-26] MEDS ORDERED: ONDANSETRON 4 MG/2 ML (SDV) Z0FRAN IVP ONE ×2 (03:15→04:30)
[2021-05-26] MEDS ORDERED: diphenhydrAMINE 50 MG/ML INJ (BENADRYL) IVP ONE (03:15)
[2021-05-26] MEDS ORDERED: LACTATED RINGERS 1,000 ML IV ONE ×3 (03:15→05:51)
--- NOTE | 2021-05-26 03:20 | ED GI ---
General Chief Complaint: Abdominal/GI Problems Stated Complaint: ABD PAIN Nursing Triage Note: brought in by [facility] for c/o nausea/abdominal pain. Source of Information: Patient (EXTREMELY DIFFICULT HISTORIAN), EMS, Old Records (ALL PMH IS FROM OLD RECORDS, PT IS NOT ANSWERING ANY QUESTIONS ON ARRIVAL) History of Present Illness Date Seen by Provider: May 26, 2021 Time Seen by Provider: 03:02 Initial Comments PT ARRIVES VIA EMS FROM HOME C/O ABDOMINAL PAIN AND NAUSEA/VOMITING SINCE YESTERDAY HAS VOMITED UNKNOWN 3 OF TIMES. EMS REPORT SMALL AMOUNT OF CLEAR EMESIS NOTED BY THEM. PT STATES LAST BM WAS YESTERDAY NO FEVER URINATING NORMALLY STATES HE HAS ULCERS PT WILL NOT STATE IF OR WHAT HE TAKES FOR HIS STOMACH UNABLE TO OBTAIN ANY OTHER INFORMATION FROM PT OR ANY PAST MEDICAL HISTORY OR IF HE TAKES ANY MEDICATIONS AT ALL HAS HISTORY OF ALCOHOL ABUSE--STATES SHE WOULD DRINK LARGE AMOUNTS OF HARD LIQUOR + BEER EVERY DAY. CLAIMS HE HAS NOT HAD ANY ALCOHOL IN 2 MONTHS DENIES ANY DRUG USE, INCLUDING DENIES MARIJUANA USE ON DIRECT QUESTIONING PT STATES HIS GIRLFRIEND'S DAUGHTER WAS SENT HOME FROM SCHOOL THIS WEEK FOR COVID, AND HE HAS BEEN AROUND HER. PT DENIES ANY RESPIRATORY SYMPTOMS PT HAS NOT HAD COVID-19 VACCINE FIRST VISIT HERE WAS 11/22/20 AND HAS HAD 5 VISITS SINCE THEN--ALL FOR THIS SAME COMPLAINT PT REPORTEDLY MOVED TO THIS AREA FROM [place] A FEW MONTHS AGO. PCP: [facility], STATES HE HAS NOT BEEN THERE RECENTLY Allergies and Home Medications Allergies Coded Allergies: morphine (Verified Allergy, Unknown, 11/22/20) Patient Home Medication List Home Medication List Reviewed: Yes Omeprazole (Omeprazole) 20 Mg Capsule.dr, 20 MG PO BID Prescribed by: THOMAS PLAZA on 03/07/21 111 Ondansetron (Ondansetron Odt) 4 Mg Tab.rapdis, 4-8 MG PO Q6H PRN for NAUSEA/VOMITING Prescribed by: THOMAS PLAZA on 03/07/21 111 Sucralfate (Carafate) 1 Gm Tablet, 1 GM PO QIDACHS Prescribed by: THOMAS PLAZA on 03/07/21 111 Sucralfate (Carafate) 1 Gm/10 Ml Oral.susp, 1 GM PO ACHS Prescribed by: KENISHA YING on 03/14/21 0946 Review of Systems Review of Systems Constitutional: no symptoms reported Respiratory: No Symptoms Reported Cardiovascular: No Symptoms Reported Gastrointestinal: See HPI, Abdominal Pain, Nausea, Vomiting Past Awgafcq-Pzcexl-Flxikk Hx Patient Social History Tobacco Use?: Yes Tobacco type used: Cigarettes Substance use?: Yes Substance type: Marijuana Additional substance use comme: 05/26/21 UDS + THC, BARBITURATES, TRICYCLICS Alcohol Use?: Yes Alcohol type: Beer, Hard Liquor Alcohol Frequency: Daily Pt feels they are or have been: No Past Medical History Surgery/Hospitalization HX: anx/dep, alcohol use, gastric ulcera, cyclic vomitting syndrome Surgeries: No Respiratory: No Cardiac: No Neurological: No Genitourinary: No Gastrointestinal: Yes (CHRONIC NAUSEA/VOMITING/ABDOMINAL PAIN ) Musculoskeletal: No Endocrine: No HEENT: No Cancer: No Psychosocial: Yes (POLYSUBSTANCE ABUSE) Anxiety, Depression Integumentary: No Physical Exam Vital Signs Vital Signs - First Documented 05/26/21 03:02 Temp 35.3 Pulse 115 Resp 24 B/P (MAP) 144/109 (121) Pulse Ox 100 O2 Delivery Room Air Capillary Refill : Less Than 3 Seconds Height/Weight/BMI Height: '" Weight: lbs. oz. kg; 26.00 BMI Method: General Appearance: WD/WN, other (PT COMPLETELY OUT OF CONTROL WAILING AND MOANING, IN POSITION, LAYING ON LEFT SIDE, HYPERVENTILATING, EXTREMELY DRAMATIC, THRASHING ALL OVER. WILL NOT ANSWER QUESTIONS ON ARRIVAL DUE TO THIS BEHAVIOR. PT WITH CONSTANT VERY HARSH, VERY LOUD RETCHING--DRY HEAVES MOSTLY WITH A FEW EPISODES OF ACTUAL EMESIS--LIGHT HAGAN WITH SMALL CHUNKS OF FOOD. NO EVIDENCE OF BLOOD OR COFFEE GROUND EMESIS. ) Respiratory: normal breath sounds Cardiovascular: regular rate, rhythm, no murmur Gastrointestinal: normal bowel sounds, soft; No distended; other (VERY MARKEDLY EXAGGERATED PAIN RESPONSE--WAILS LOUDLY AND JERKS VERY DRAMATICALLY EVEN BEFORE HE IS TOUCHED. ) Extremities: normal capillary refill Neurologic/Psychiatric: no motor/sensory deficits, other (BEHAVIOR NOTED ABOVE) Skin: normal color (PT IS BLACK), warm/dry Progress/Results/Core Measures Results/Orders Lab Results Laboratory Tests Test 05/26/21 03:17 05/26/21 05:00 Range/Units White Blood Count 11.8 H 4.3-11.0 10^3/uL Red Blood Count 5.57 H 4.30-5.52 10^6/uL Hemoglobin 16.7 13.3-17.7 g/dL Hematocrit 49 40-54 % Mean Corpuscular Volume 89 80-99 fL Mean Corpuscular Hemoglobin 30 25-34 pg Mean Corpuscular Hemoglobin Concent 34 32-36 g/dL Red Cell Distribution Width 12.3 10.0-14.5 % Platelet Count 405 H 130-400 10^3/uL Mean Platelet Volume 8.8 L 9.0-12.2 fL Immature Granulocyte % (Auto) 0 % Neutrophils (%) (Auto) 71 42-75 % Lymphocytes (%) (Auto) 20 12-44 % Monocytes (%) (Auto) 8 0-12 % Eosinophils (%) (Auto) 1 0-10 % Basophils (%) (Auto) 1 0-10 % Neutrophils # (Auto) 8.4 H 1.8-7.8 10^3/uL Lymphocytes # (Auto) 2.3 1.0-4.0 10^3/uL Monocytes # (Auto) 0.9 0.0-1.0 10^3/uL Eosinophils # (Auto) 0.1 0.0-0.3 10^3/uL Basophils # (Auto) 0.1 0.0-0.1 10^3/uL Immature Granulocyte # (Auto) 0.0 0.0-0.1 10^3/uL Sodium Level 141 135-145 MMOL/L Potassium Level 3.2 L 3.6-5.0 MMOL/L Chloride Level 100 98-107 MMOL/L Carbon Dioxide Level 21 21-32 MMOL/L Anion Gap 20 H 5-14 MMOL/L Blood Urea Nitrogen 16 7-18 MG/DL Creatinine 1.08 0.60-1.30 MG/DL Estimat Glomerular Filtration Rate 89 BUN/Creatinine Ratio 15 Glucose Level 134 H 70-105 MG/DL Calcium Level 10.2 H 8.5-10.1 MG/DL Corrected Calcium 9.9 8.5-10.1 MG/DL Magnesium Level 2.1 1.6-2.4 MG/DL Total Bilirubin 0.6 0.1-1.0 MG/DL Aspartate Amino Transf (AST/SGOT) 23 5-34 U/L Alanine Aminotransferase (ALT/SGPT) 18 0-55 U/L Alkaline Phosphatase 63 40-136 U/L Total Protein 8.1 6.4-8.2 GM/DL Albumin 4.4 3.2-4.5 GM/DL Amylase Level 75 25-125 U/L Lipase 23 8-78 U/L Serum Alcohol < 10 <10 MG/DL Influenza Type A (RT-PCR) Not Detected Not Detecte Influenza Type B (RT-PCR) Not Detected Not Detecte SARS-CoV-2 RNA (RT-PCR) Not Detected Not Detecte Urine Color YELLOW Urine Clarity CLEAR Urine pH >=9.0 5-9 Urine Specific [place] 1.010 L 1.016-1.022 Urine Protein 1+ H NEGATIVE Urine Glucose (UA) NEGATIVE NEGATIVE Urine Ketones NEGATIVE NEGATIVE Urine Nitrite NEGATIVE NEGATIVE Urine Bilirubin NEGATIVE NEGATIVE Urine Urobilinogen 0.2 < = 1.0 MG/DL Urine Leukocyte Esterase NEGATIVE NEGATIVE Urine RBC (Auto) NEGATIVE NEGATIVE Urine RBC 0-2 /HPF Urine WBC 2-5 /HPF Urine Squamous Epithelial Cells 0-2 /HPF Urine Crystals NONE /LPF Urine Bacteria FEW H /HPF Urine Casts NONE /LPF Urine Mucus NEGATIVE /LPF Urine Culture Indicated YES Urine Opiates Screen NEGATIVE NEGATIVE Urine Oxycodone Screen NEGATIVE NEGATIVE Urine Methadone Screen NEGATIVE NEGATIVE Urine Propoxyphene Screen NEGATIVE NEGATIVE Urine Barbiturates Screen POSITIVE H NEGATIVE Ur Tricyclic Antidepressants Screen POSITIVE H NEGATIVE Urine Phencyclidine Screen NEGATIVE NEGATIVE Urine Amphetamines Screen NEGATIVE NEGATIVE Urine Methamphetamines Screen NEGATIVE NEGATIVE Urine Benzodiazepines Screen NEGATIVE NEGATIVE Urine Cocaine Screen NEGATIVE NEGATIVE Urine Cannabinoids Screen POSITIVE H NEGATIVE My Orders Orders - JAY JAY PHILLIPS DO Ed Iv/Invasive Line Start (05/26/21 03:09) Monitor-Rhythm Ecg Trace Only (05/26/21 03:09) Alcohol (05/26/21 03:09) Amylase (05/26/21 03:09) Cbc With Automated Diff (05/26/21 03:09) Comprehensive Metabolic Panel (05/26/21 03:09) Drug Screen Stat (Urine) (05/26/21 03:09) Lipase (05/26/21 03:09) Magnesium (05/26/21 03:09) Ua Culture If Indicated (05/26/21 03:09) Ondansetron Injection (Zofran Injectio (05/26/21 03:15) Ed Iv/Invasive Line Start (05/26/21 03:09) Lactated Ringers (Lr 1000 Ml Iv Solution (05/26/21 03:15) Pantoprazole Injection (Protonix Injecti (05/26/21 03:15) Diphenhydramine Injection (Benadryl Inje (05/26/21 03:15) Covid 19 Inhouse Test (05/26/21 03:14) Influenza A And B By Pcr (05/26/21 03:14) Isolation Central Supply Req (05/26/21 03:14) Haloperidol Injection (Haldol Injectio (05/26/21 03:30) Droperidol Inj (Ed Only) (Inapsine Inj ( (05/26/21 04:00) Ct Abdomen/Pelvis Wo (05/26/21 03:21) Ondansetron Injection (Zofran Injectio (05/26/21 04:30) Droperidol Inj (Ed Only) (Inapsine Inj ( (05/26/21 04:30) Medications Given in ED Current Medications Medications Dose Ordered Sig/Wade Route Start Time Stop Time Status Last Admin Dose Admin Diphenhydramine HCl 50 mg ONCE ONCE IVP 05/26/21 03:15 05/26/21 03:16 DC 05/26/21 03:20 50 MG Droperidol 2.5 mg ONCE ONCE IV 05/26/21 04:00 05/26/21 04:01 DC 05/26/21 04:04 2.5 MG Droperidol 2.5 mg ONCE ONCE IV 05/26/21 04:30 05/26/21 04:31 DC 05/26/21 05:09 2.5 MG Haloperidol Lactate 5 mg ONCE ONCE IV 05/26/21 03:30 05/26/21 03:31 DC 05/26/21 03:29 5 MG Lactated Ringer's 1,000 ml @ 0 mls/hr Q0M ONCE IV 05/26/21 03:15 05/26/21 03:16 DC 05/26/21 03:20 0 MLS/HR Ondansetron HCl 4 mg ONCE ONCE IVP 05/26/21 03:15 05/26/21 03:16 DC 12/20/21 03:20 4 MG Ondansetron HCl 8 mg ONCE ONCE IVP 05/26/21 04:30 05/26/21 04:31 DC 05/26/21 05:09 8 MG Pantoprazole 40 mg ONCE ONCE IV 05/26/21 03:15 05/26/21 03:16 DC 05/26/21 03:20 40 MG Vital Signs/I&O 05/26/21 03:02 Temp 35.3 Pulse 115 Resp 24 B/P (MAP) 144/109 (121) Pulse Ox 100 O2 Delivery Room Air Blood Pressure Mean: 121 Progress Progress Note : Progress Note PT VERY HOSTILE TO STAFF, AND MADE MULTIPLE DEROGATORY RACIAL STATEMENTS TO STAFF ON ARRIVAL INITIALLY, PT REFUSED ALL CARE--WOULD NOT COOPERATE EVEN FOR VITAL SIGNS. EVENTUALLY PT CALMED SOMEWHAT AND AGREED TO ALL CARE AND TREATMENT, BUT STILL WITH VERY DRAMATIC BEHAVIOR GAVE IV FLUIDS, ZOFRAN, BENADRYL, HALDOL, INAPSINE--WITH ONLY MILD AND TRANSIENT IMPROVEMENT Diagnostic Imaging Comments CT ABDOMEN/PELVIS--PER RADIOLOGIST REPORT AT 0459 FINDINGS: The lung bases are clear. The liver, gallbladder, bile ducts, spleen, adrenals and pancreas unremarkable. There are no opaque kidney stones. There is no hydroureteronephrosis. There is no small or large bowel obstruction. The air-containing appendix visualized and normal. No diverticulitis. Prostate, seminal vesicles and urinary bladder unremarkable. Pelvic phleboliths noted incidentally. No ascites, abscess, hematoma or acute fluid collection. No pneumatosis or free gas. Bony structures nonacute. IMPRESSION: Unremarkable CT abdomen and pelvis Reviewed: Reviewed by Ut Departure Communication (Admissions) 0500--SPOKE WITH DR. GILLIAM, ACCEPTS PT FOR ADMIT Impression Primary Impression: INTRACTABLE NAUSEA AND VOMITING AND ABDOMINAL PAIN Additional Impressions: CHRONIC NAUSEA AND VOMITING Illicit drug use Marijuana use Alcohol abuse Disposition: ADMITTED INPATIENT Condition: Stable Admissions Decision to Admit Reason: Admit from ER (General) Decision to Admit/Date: May 26, 2021 Time/Decision to Admit Time: 05:00 Departure-Patient Inst. Referrals: NO,LOCAL PHYSICIAN (PCP/Family) Primary Care Physician JAY JAY PHILLIPS DO May 26, 2021 03:20
[2021-05-26] MEDS ORDERED: HALOPERIDOL 5 MG/ML (HALDOL) VIAL IV ONE (03:30)
[2021-05-26 03:32] LABS: BASOPHILS # (AUTO) 0.1 10^3/uL (0.0-0.1); BASOPHILS % (AUTO) 1 % (0-10); EOSINOPHILS # (AUTO) 0.1 10^3/uL (0.0-0.3); EOSINOPHILS % (AUTO) 1 % (0-10); HEMATOCRIT 49 % (40-54); HEMOGLOBIN 16.7 g/dL (13.3-17.7); LYMPHOCYTES # (AUTO) 2.3 10^3/uL (1.0-4.0); LYMPHOCYTES % (AUTO) 20 % (12-44); MEAN CORPUSCULAR HEMOGLOBIN 30 pg (25-34); MEAN CORPUSCULAR HGB CONC 34 g/dL (32-36); MEAN CORPUSCULAR VOLUME 89 fL (80-99); MEAN PLATELET VOLUME 8.8 fL (9.0-12.2); MONOCYTES # (AUTO) 0.9 10^3/uL (0.0-1.0); MONOCYTES % (AUTO) 8 % (0-12); NEUTROPHILS # (AUTO) 8.4 10^3/uL (1.8-7.8); NEUTROPHILS % (AUTO) 71 % (42-75); PLATELET COUNT 405 10^3/uL (130-400); WHITE BLOOD COUNT 11.8 10^3/uL (4.3-11.0)
[2021-05-26 03:40] LABS: ALBUMIN 4.4 GM/DL (3.2-4.5); CHLORIDE 100 MMOL/L (98-107); POTASSIUM 3.2 MMOL/L (3.6-5.0); SODIUM 141 MMOL/L (135-145)
[2021-05-26 03:42] LABS: AMYLASE 75 U/L (25-125); CALCIUM 10.2 MG/DL (8.5-10.1)
[2021-05-26 03:43] LABS: GLUCOSE 134 MG/DL (70-105); TOTAL PROTEIN 8.1 GM/DL (6.4-8.2)
[2021-05-26 03:44] LABS: CARBON DIOXIDE 21 MMOL/L (21-32)
[2021-05-26 03:45] LABS: BILIRUBIN,TOTAL 0.6 MG/DL (0.1-1.0)
[2021-05-26 03:46] LABS: ALKALINE PHOSPHATASE 63 U/L (40-136)
[2021-05-26 03:47] LABS: CREATININE SERUM 1.08 MG/DL (0.60-1.30); GFR ESTIMATED 89
[2021-05-26 03:48] LABS: BUN/CREATININE RATIO 15
[2021-05-26 03:49] LABS: MAGNESIUM 2.1 MG/DL (1.6-2.4)
[2021-05-26 03:50] LABS: ALANINE AMINOTRANSFERASE 18 U/L (0-55)
[2021-05-26 03:51] LABS: LIPASE 23 U/L (8-78)
[2021-05-26] MEDS ORDERED: DROPERIDOL 5 MG/2 ML (INAPSINE) ED ONLY! IV ONE ×2 (04:00→04:30)
--- NOTE | 2021-05-26 04:53 | Diagnostic Imaging Report ---
PROCEDURE: CT abdomen and pelvis without contrast. TECHNIQUE: Multiple contiguous axial images were obtained through the abdomen and pelvis without the use of intravenous contrast. Auto Exposure Controls were utilized during the CT exam to meet ALARA standards for radiation dose reduction. INDICATION: Nausea, vomiting. Compared 11/22/2020. FINDINGS: The lung bases are clear. The liver, gallbladder, bile ducts, spleen, adrenals and pancreas unremarkable. There are no opaque kidney stones. There is no hydroureteronephrosis. There is no small or large bowel obstruction. The air-containing appendix visualized and normal. No diverticulitis. Prostate, seminal vesicles and urinary bladder unremarkable. Pelvic phleboliths noted incidentally. No ascites, abscess, hematoma or acute fluid collection. No pneumatosis or free gas. Bony structures nonacute. IMPRESSION: Unremarkable CT abdomen and pelvis Dictated by: Dictated on workstation # [id number]
[2021-05-26 05:29] LABS: BILIRUBIN,URINE NEGATIVE (NEGATIVE); CLARITY,URINE CLEAR; COLOR,URINE YELLOW; GLUCOSE, URINE (UA) NEGATIVE (NEGATIVE); KETONES,URINE NEGATIVE (NEGATIVE); LEUKOCYTE ESTERASE ,URINE NEGATIVE (NEGATIVE); NITRITE,URINE NEGATIVE (NEGATIVE); PH,URINE >=9.0 (5-9); PROTEIN,URINE 1+ (NEGATIVE)
[2021-05-26 05:41] LABS: AMPHETAMINE SCREEN, URINE NEGATIVE (NEGATIVE); BARBITURATE SCREEN URINE POSITIVE (NEGATIVE); BENZODIAZEPINES SCREEN URINE NEGATIVE (NEGATIVE); CANNABINOID SCREEN, URINE POSITIVE (NEGATIVE); COCAINE SCREEN URINE NEGATIVE (NEGATIVE); METHADONE STAT NEGATIVE (NEGATIVE); METHAMPHETAMINE SCREEN URINE S NEGATIVE (NEGATIVE); OPIATE SCREEN URINE NEGATIVE (NEGATIVE); OXYCODONE STAT NEGATIVE (NEGATIVE); PROPOXYPHENE STAT NEGATIVE (NEGATIVE); TRICYCLIC ANTIDEPRESSANTS SCRE POSITIVE (NEGATIVE)
[2021-05-26 05:44] LABS: BACTERIA,URINE FEW /HPF; RBC,URINE 0-2 /HPF; SQUAMOUS EPITHELIAL CELL,UR 0-2 /HPF
[2021-05-26] MEDS ORDERED: diphenhydrAMINE 50 MG/ML INJ (BENADRYL) IV PRN (07:00)
[2021-05-26] MEDS ORDERED: PROMETHAZINE INJ 25 MG/ML (PHENERGAN) AMP IVP PRN (07:00)
[2021-05-26] MEDS ORDERED: HALOPERIDOL 5 MG/ML (HALDOL) VIAL IV PRN (07:00)
[2021-05-26] MEDS ORDERED: ONDANSETRON 4 MG/2 ML (SDV) Z0FRAN IV PRN (07:00)
[2021-05-26] MEDS: LACTATED RINGERS 1,000 ML IV SCH ×4 (07:22→21:22)
[2021-05-26 08:00] VITALS: BP_SYST 111; BP_SYST 155; BP_DIAS 72; BP_DIAS 92
[2021-05-26] MEDS: POTASSIUM CL 10MEQ/50ML IVPB 50 ML IV SCH ×4 (09:34→12:57)
[2021-05-26 11:39] VITALS: BP 138/84
--- NOTE | 2021-05-26 12:33 | History & Physical-Hospitalist ---
ROD LANGLEY 05/26/21 1233: History of Present Illness HPI/Chief Complaint Patient is a 46 year old male who came to [facility] ER last night via EMS with a CC of abdominal pain and N/V since yesterday. Patient reported three episodes of emesis. Patient reports last bowel movement yesterday. Patient denied fever and dysuria. Patient has a past medical history of GI ulcers. Patient has a history of alcohol use disorder. Patient's urine was positive for cannabinoids, barbiturates, and tricyclics. Patient did have episodes of emesis in the ER while being seen. Emesis was light gerber, no signs of dark, bloody emesis. Patient has been seen for similar symptoms at [facility] ER. Patient was admitted and started on LR, protonix, haldol, and KCl replacement. Potassium found to be 3.2. Source: RN/MD Date Seen 05/26/21 Time Seen by a Provider: 09:30 Attending Physician Naina Chen DO PCP No,Local Physician Referring Physician Date of Admission May 26, 2021 at 05:00 Home Medications & Allergies Home Medications Reviewed patient Home Medication Reconciliation performed by pharmacy medication reconciliations senior quality control technician and/or nursing. Patients Allergies have been reviewed. Allergies Allergies Coded Allergies morphine (Verified Allergy, Unknown, 11/22/20) Past Uiupuzz-Fsjbtb-Nhqhki Hx Patient Social History Tobacco Use?: Yes Tobacco type used: Cigarettes Substance use?: Yes Substance type: Marijuana Additional substance use comme: 05/26/21 UDS + THC, BARBITURATES, TRICYCLICS Alcohol Use?: Yes Alcohol type: Beer, Hard Liquor Alcohol Frequency: Daily Pt feels they are or have been: Unable to obtain Immunizations Up To Date Tetanus Booster (TDap): Unknown Current Status Advance Directives: Unable to obtain Communicates: Verbally Primary Language: Malay Preferred Spoken Language: Malay Is interpretation needed?: No Past Medical History Anxiety, Depression Review of Systems ROS-Unable to Obtain: Patient asleep this morning. Constitutional: see HPI Physical Exam Physical Exam Vital Signs Vital Signs - First Documented 05/26/21 03:02 Temp 35.3 Pulse 115 Resp 24 B/P (MAP) 144/109 (121) Pulse Ox 100 O2 Delivery Room Air Capillary Refill : Less Than 3 Seconds Height, Weight, BMI Height: '" Weight: lbs. oz. kg; 26.40 BMI Method: General Appearance: No Apparent Distress, WD/WN Respiratory: No Accessory Muscle Use, No Respiratory Distress Cardiovascular: Regular Rate, Rhythm Rectal: Deferred Results Results/Procedures Labs Laboratory Tests 05/26/21 03:17 Patient resulted labs reviewed. Imaging: Reviewed Imaging Report Imaging [facility] [place] [place] NAME: GONZÁLEZ EMERSON [facility] REC#: [id number] PT STATUS: ADM Jim : 1975 PHYSICIAN: JAY JAY PHILLIPS DO ADMIT DATE: 05/26/21 Signed Date of Exam:05/26/21 CT ABDOMEN/PELVIS WO PROCEDURE: CT abdomen and pelvis without contrast. TECHNIQUE: Multiple contiguous axial images were obtained through the abdomen and pelvis without the use of intravenous contrast. Auto Exposure Controls were utilized during the CT exam to meet ALARA standards for radiation dose reduction. INDICATION: Nausea, vomiting. Compared 11/22/2020. FINDINGS: The lung bases are clear. The liver, gallbladder, bile ducts, spleen, adrenals and pancreas unremarkable. There are no opaque kidney stones. There is no hydroureteronephrosis. There is no small or large bowel obstruction. The air-containing appendix visualized and normal. No diverticulitis. Prostate, seminal vesicles and urinary bladder unremarkable. Pelvic phleboliths noted incidentally. No ascites, abscess, hematoma or acute fluid collection. No pneumatosis or free gas. Bony structures nonacute. IMPRESSION: Unremarkable CT abdomen and pelvis Dictated by: Dictated on workstation # [id number] Dict: 05/26/21 0428 Trans: 05/26/21 0548 [facility] [id number] Interpreted by: FUENTES CHAMPION Electronically signed by: FUENTES CHAMPION 05/26/21 0548 Assessment/Plan Admission Diagnosis Intractable Nausea and Vomiting, history of GI ulcers Hypokalemic Metabolic Alkalosis Admission Status: Inpatient Order (span 2 midnights) Reason for Inpatient Admission: Intractable Nausea and Vomiting, history of GI ulcers Hypokalemic Metabolic Alkalosis Assessment and Plan Assessment Intractable N/V - Possible Cannabinoid hyperemesis Hypokalemic metabolic acidosis History of GI Ulcers Plan IV LR Protonix KCl replacement NPO diet NAINA Quintanilla DO 05/27/21 0547: History of Present Illness HPI/Chief Complaint CC: Ninfa hunt HPI: This is a 46yo male clinic of [facility] who presents to the ER with severe nausea and vomiting and dehydration. IV fluids were initiated along with potassoium supplement because potassium us 3.2. Pt has his blanket over his head and doesnt want to talk. Source: RN/MD Exam Limitations: clinical condition Past Xtjdvfq-Ztzhsf-[place] Hx Patient Social History Marrital Status: single Employed/Student: unemployed Smoking Status: Unknown if Ever Smoked Review of Systems Constitutional: see HPI Physical Exam Physical Exam General Appearance: No Apparent Distress, Chronically ill Respiratory: Lungs Clear Cardiovascular: Regular Rate, Rhythm Assessment/Plan Admission Diagnosis Assessment: Hyperemesis cannabis Hypokalemia, dehydration Plan: IV fluid Admission Status: Observation Diagnosis/Problems Diagnosis/Problems (1) Cannabis hyperemesis syndrome concurrent with and due to cannabis abuse Supervisory-Addendum Brief Verification & Attestation Participated in pt care: history, MDM, physical Personally performed: exam, history, MDM, supervision of care Care discussed with: Medical Student Procedures: n/a Results interpretation: Verified all documentation Verification and Attestation of Medical Student E/M Service A medical student performed and documented this service in my presence. I reviewed and verified all information documented by the medical student and made modifications to such information, when appropriate. I personally performed the physical exam and medical decision making. Naina Chen, May 27, 2021,05:46 ROD LANGLEY May 26, 2021 12:33 NAINA CHEN DO May 27, 2021 05:47
[2021-05-26 15:30] VITALS: BP 155/87
[2021-05-26 20:29] VITALS: BP 156/92
[2021-05-26] MEDS: PANTOPRAZOLE 40 MG (PROTONIX) VIAL IV SCH (21:22)
[2021-05-27 00:05] VITALS: BP 169/98
[2021-05-27] MEDS: LACTATED RINGERS 1,000 ML IV SCH ×5 (01:41→19:40)
[2021-05-27 04:23] VITALS: BP 165/92
[2021-05-27 05:52] LABS: BASOPHILS % (AUTO) 0 % (0-10); EOSINOPHILS % (AUTO) 0 % (0-10); HEMATOCRIT 44 % (40-54); HEMOGLOBIN 14.4 g/dL (13.3-17.7); LYMPHOCYTES # (AUTO) 1.3 10^3/uL (1.0-4.0); LYMPHOCYTES % (AUTO) 13 % (12-44); MEAN CORPUSCULAR HEMOGLOBIN 30 pg (25-34); MEAN CORPUSCULAR HGB CONC 33 g/dL (32-36); MEAN CORPUSCULAR VOLUME 92 fL (80-99); MONOCYTES # (AUTO) 0.8 10^3/uL (0.0-1.0); MONOCYTES % (AUTO) 8 % (0-12); NEUTROPHILS % (AUTO) 79 % (42-75); PLATELET COUNT 310 10^3/uL (130-400); WHITE BLOOD COUNT 10.1 10^3/uL (4.3-11.0)
[2021-05-27 06:00] LABS: POTASSIUM 3.9 MMOL/L (3.6-5.0)
[2021-05-27 06:01] LABS: CALCIUM 8.5 MG/DL (8.5-10.1)
[2021-05-27 06:05] LABS: CREATININE SERUM 0.77 MG/DL (0.60-1.30)
[2021-05-27 06:08] LABS: ALBUMIN 3.4 GM/DL (3.2-4.5)
[2021-05-27 06:11] LABS: TOTAL PROTEIN 6.2 GM/DL (6.4-8.2)
[2021-05-27 06:13] LABS: BILIRUBIN,TOTAL 0.6 MG/DL (0.1-1.0)
[2021-05-27 06:17] LABS: MAGNESIUM 1.9 MG/DL (1.6-2.4)
[2021-05-27 08:09] VITALS: BP 120/73
[2021-05-27] MEDS: PANTOPRAZOLE 40 MG (PROTONIX) VIAL IV SCH ×2 (09:22→19:40)
[2021-05-27] MEDS: ENOXAPARIN 40 MG/0.4 ML (LOVENOX) SYR SC SCH (10:11)
--- NOTE | 2021-05-27 10:52 | Progress Note - Hospitalist ---
ROD LANGLEY 05/27/21 1052: Subjective HPI/CC On Admission Date Seen by Provider: May 27, 2021 Time Seen by Provider: 08:10 CC: Ninfa hunt HPI: This is a 46yo male clinic of [facility] who presents to the ER with severe nausea and vomiting and dehydration. IV fluids were initiated along with potassoium supplement because potassium us 3.2. Pt has his blanket over his head and doesnt want to talk. Subjective/Events-last exam Patient had two episodes of emesis overnight. Reported the emesis looked similar to how it did at home. No hematemesis noted. Patient asleep/covering up under blankets when I came into the room. I asked how he was doing and he said "so- so". Patient would not elaborate further. Patient didn't answer when I asked if I could listen to his vitals. Patient told his RN that zofran makes him clench his jaw and that he doesn't want to take it anymore. Fluids were at 250 CC/hr, will decrease rate. Going to start lovenox. Ordering PT/OT. Patient did not give me a ROS. Objective Exam Vital Signs Vital Signs Date Time Temp Pulse Resp B/P (MAP) Pulse Ox O2 Delivery O2 Flow Rate FiO2 05/27/21 08:09 37.3 86 20 120/73 (89) 98 Room Air Capillary Refill : Less Than 3 Seconds General Appearance: Other (Asleep under covers, not allowing me to see him) Results/Procedures Lab Laboratory Tests 05/27/21 05:40 Patient resulted labs reviewed. Imaging: Reviewed Imaging Report Assessment/Plan Assessment and Plan Assess & Plan/Chief Complaint Assessment Intractable N/V - Possible Cannabinoid hyperemesis Hypokalemia Dehydration History of GI Ulcers Plan IV LR - 125 cc/hr Protonix Monitor potassium NPO diet D/C Zofran - Phenergen + Benadryl PT/OT NAINA CHEN DO 05/28/21 0605: Subjective Subjective/Events-last exam Refuses to talk to me Keeps blanket over his head Objective Exam General Appearance: No Apparent Distress, Other (Asleep under covers, not allowing me to see him) Assessment/Plan Assessment and Plan Assess & Plan/Chief Complaint Supportive care Supervisory-Addendum Brief Verification & Attestation Participated in pt care: history, MDM, physical Personally performed: exam, history, MDM, supervision of care Care discussed with: Medical Student Procedures: n/a Results interpretation: Verified all documentation Verification and Attestation of Medical Student E/M Service A medical student performed and documented this service in my presence. I reviewed and verified all information documented by the medical student and made modifications to such information, when appropriate. I personally performed the physical exam and medical decision making. Naina Chen May 28, 2021,06:04 ROD LANGLEY May 27, 2021 10:52 NAINA CHEN DO May 28, 2021 06:05
[2021-05-27 11:43] VITALS: BP 124/75
--- NOTE | 2021-05-27 14:59 | Physical Therapy Evaluation ---
PT Evaluation-General Medical Diagnosis Admission Date May 26, 2021 at 05:00 Medical Diagnosis: abdominal pain, N/V Onset Date: May 26, 2021 Therapy Diagnosis Therapy Diagnosis: impaired mobility, strength Precautions Precautions/Isolations: Fall Prevention, Standard Precautions Referral Physician: Naina Peñaloza DO Reason for Referral: Evaluation/Treatment Medical History Additional Medical History depression, anxiety Prior Prior Level of Function SCALE: Activities may be completed with or without assistive devices. 4-Lkrzwiglnf-qqogmah completes the activity by him/herself with no assistance from a helper. 5-Set-up or Clean-up Assistance-helper sets up or cleans up; patient completes activity. [place] assists only prior to or following the activity. 4-Supervision or Touching Assistance-helper provides verbal cues and/or touching/steadying and/or contact guard assistance as patient completes activity. Assistance may be provided throughout the activity or intermittently. 3-Partial/Moderate Assistance-helper does LESS THAN HALF the effort. [place] lifts, holds or supports trunk or limbs, but provides less than half the effort. 2-Substantial/Maximal Assistance-helper does MORE THAN HALF the effort. [place] lifts or holds trunk or limbs and provides more than half the effort. 6-Rwccpmayl-rjgzfa does ALL the effort. Patient does none of the effort to complete the activity. Or, the assistance of 2 or more helpers is required for the patient to complete the activity. If activity was not attempted, code reason: 7-Patient Refused. 9-Not Applicable-not attempted and the patient did not perform the activity before the current illness, exacerbation or injury. 10-Not Attempted due to Environmental Limitations-(lack of equipment, weather restraints, etc.). 88-Not Attempted due to Medical Conditions or Safety Concerns. Bed Mobility: 6 Transfers (B,C,W/C): 6 Gait: 6 Stairs: 6 Indoor Mobility (Ambulation): Independent Stairs: Independent PT Evaluation-Current Subjective Patient in bed pre tx, agrees to PT, has unrated low back pain that is chronic. Pt/Family Goals to be independent at home Objective Patient Orientation: Person, Place, Situation ROM/Strength ROM Lower Extremities WNL Strength Lower Extremities RLE 4+/5 grossly, LLE could not be tested because patient would stop his muscle contraction just as pressure was applied, even with direction Neuromuscular (Tone, Coordination, Reflexes) Patient seemed to have slightly decreased peripheral vision on the left side, attempted to test tracking but patient states he can't do it. Sensory Hearing: Functional Sensation Right Lower Extremit: Intact Sensation Left Lower Extremity: Intact Transfers Roll Left to Right (QC): 6 Sit to Lying (QC): 6 Lying to Sitting/Side of Bed(Q: 6 Sit to Stand (QC): 4 Patient stands but is flexed at the hips about 30 degrees, when asked to stand straight he says it hurts but then does it and stands completely straight up. Attempted to ambulate with MANUAL WINDER but patient started jerking his trunk forward and back and it was decided that ambulation would not be safe at this time. Patient layed back down on his own. Balance Sitting Static: Normal Sitting Dynamic: Normal Standing Static: Poor Assessment/Needs Patient in bed post tx with nurse call, phone, tray, all needs met. Patient has impaired mobility, strength. Jerking movement with standing. Rehab Potential: Guarded PT Mcc Goals Mcc Goals PT Cleaning And Maintenance Worker Goals Time Frame: Jun 03, 2021 Roll Left & Right (QC): 6 Sit to Lying (QC): 6 Lying-Sitting on Side/Bed(QC): 6 Sit to Stand (QC): 4 Chair/Omv-qg-Kbqvr Xfer(QC): 4 Walk 10 feet (QC): 4 Walk 50ft with 2 Turns (QC): 4 PT Plan Problem List Problem List: Activity Tolerance, Functional Strength, Safety, Balance, Gait, Transfer, ROM Treatment/Plan Treatment Plan: Continue Plan of Care Treatment Plan: Education, Functional Activity Dianelys, Functional Strength, Gait, Safety, Therapeutic Exercise, Transfers Treatment Duration: Jun 03, 2021 Frequency: 6 times per week Estimated Hrs Per Day: .25 hour per day Patient and/or Family Agrees t: Yes Safety Risks/Education Patient Education: Correct Positioning, Safety Issues Teaching Recipient: Patient Teaching Methods: Demonstration, Discussion Response to Teaching: Reinforcement Needed Discharge Recommendations Plan Patient will perform bed mobility and transfer training, balance and endurance training, functional strengthening, stair training, gait training, and e ducation, to improve functional mobility and independence at home. Therapy Discharge Recommendati: Scheduled Assistance, Home & Family, Post Acute PT Time/GCodes Time In: 1444 Time Out: 1454 Total Billed Treatment Time: 10 Total Billed Treatment 1 visit EVL JUD SAUNDERS PT May 27, 2021 14:59
[2021-05-27 16:00] VITALS: BP 130/58
[2021-05-27 20:00] VITALS: BP 114/67
[2021-05-28 00:14] VITALS: BP 110/70
[2021-05-28 03:32] VITALS: BP 118/72
[2021-05-28] MEDS: LACTATED RINGERS 1,000 ML IV SCH (03:36)
[2021-05-28 07:08] LABS: BASOPHILS % (AUTO) 1 % (0-10); EOSINOPHILS # (AUTO) 0.1 10^3/uL (0.0-0.3); EOSINOPHILS % (AUTO) 1 % (0-10); HEMATOCRIT 42 % (40-54); HEMOGLOBIN 13.9 g/dL (13.3-17.7); LYMPHOCYTES # (AUTO) 1.5 10^3/uL (1.0-4.0); LYMPHOCYTES % (AUTO) 24 % (12-44); MEAN CORPUSCULAR HEMOGLOBIN 31 pg (25-34); MEAN CORPUSCULAR HGB CONC 33 g/dL (32-36); MEAN CORPUSCULAR VOLUME 92 fL (80-99); MEAN PLATELET VOLUME 9.4 fL (9.0-12.2); MONOCYTES # (AUTO) 0.6 10^3/uL (0.0-1.0); MONOCYTES % (AUTO) 9 % (0-12); NEUTROPHILS % (AUTO) 65 % (42-75); PLATELET COUNT 290 10^3/uL (130-400); WHITE BLOOD COUNT 6.1 10^3/uL (4.3-11.0)
[2021-05-28 07:37] LABS: ALBUMIN 3.2 GM/DL (3.2-4.5); BILIRUBIN,TOTAL 0.7 MG/DL (0.1-1.0); CALCIUM 8.6 MG/DL (8.5-10.1); CREATININE SERUM 0.74 MG/DL (0.60-1.30); POTASSIUM 3.9 MMOL/L (3.6-5.0); TOTAL PROTEIN 5.9 GM/DL (6.4-8.2)
[2021-05-28 08:08] VITALS: BP 116/56
[2021-05-28] MEDS: ENOXAPARIN 40 MG/0.4 ML (LOVENOX) SYR SC SCH (08:28)
[2021-05-28] MEDS: PANTOPRAZOLE 40 MG (PROTONIX) VIAL IV SCH (08:28)
--- NOTE | 2021-05-28 10:24 | Physical Therapy Daily Note ---
PT Daily Note-Current Subjective Patient in bed pre tx, agrees to PT but is agitated about being NPO, nurse notified that he wants to speak with her, has unrated abdominal pain. Appearance Patient in bed post tx with nurse call, phone, tray, all needs met. Mental Status Patient Orientation: Person, Place, Situation Transfers SCALE: Activities may be completed with or without assistive devices. 0-Mnzyyomefk-iitnyot completes the activity by him/herself with no assistance from a helper. 5-Set-up or Clean-up Assistance-helper sets up or cleans up; patient completes activity. [place] assists only prior to or following the activity. 4-Supervision or Touching Assistance-helper provides verbal cues and/or touching/steadying and/or contact guard assistance as patient completes activity. Assistance may be provided throughout the activity or intermittently. 3-Partial/Moderate Assistance-helper does LESS THAN HALF the effort. [place] lifts, holds or supports trunk or limbs, but provides less than half the effort. 2-Substantial/Maximal Assistance-helper does MORE THAN HALF the effort. [place] lifts or holds trunk or limbs and provides more than half the effort. 2-Cvyjqynfr-huqcoa does ALL the effort. Patient does none of the effort to complete the activity. Or, the assistance of 2 or more helpers is required for the patient to complete the activity. If activity was not attempted, code reason: 7-Patient Refused. 9-Not Applicable-not attempted and the patient did not perform the activity before the current illness, exacerbation or injury. 10-Not Attempted due to Environmental Limitations-(lack of equipment, weather restraints, etc.). 88-Not Attempted due to Medical Conditions or Safety Concerns. Roll Left & Right (QC): 6 Sit to Lying (QC): 6 Lying to Sitting/Side of Bed(Q: 6 Sit to Stand (QC): 4 Chair/Lnm-iz-Pkllz Xfer(QC): 4 Gait Training Distance: 80' Walk 10 feet (QC): 4 Walk 50 ft with 2 Turns(QC): 4 Gait Persons Needed: 1 Gait Assistive Device: FWW slow ambulation, uncoordinated steps, intermittent knee buckling, unsteady trunk movement during ambulation Treatments bed mobility and transfers, ambulation Assessment Current Status: Fair Progress patient automatically hopped back into bed after getting to his room and pullled cover over his head. PT Senior Living Goals Air Export Logistics Manager Goals PT Senior Living Goals Time Frame: Jun 03, 2021 Roll Left & Right (QC): 6 Sit to Lying (QC): 6 Lying-Sitting on Side/Bed(QC): 6 Sit to Stand (QC): 4 Chair/Lvk-zv-Duwsb Xfer(QC): 4 Walk 10 feet (QC): 4 Walk 50ft with 2 Turns (QC): 4 PT Plan Problem List Problem List: Activity Tolerance, Functional Strength, Safety, Balance, Gait, Transfer, ROM Treatment/Plan Treatment Plan: Continue Plan of Care Treatment Plan: Education, Functional Activity Dianelys, Functional Strength, Gait, Safety, Therapeutic Exercise, Transfers Treatment Duration: Jun 03, 2021 Frequency: 6 times per week Estimated Hrs Per Day: .25 hour per day Patient and/or Family Agrees t: Yes Safety Risks/Education Patient Education: Gait Training, Transfer Techniques, Correct Positioning, Safety Issues Teaching Recipient: Patient Teaching Methods: Demonstration, Discussion Response to Teaching: Reinforcement Needed Time/GCodes Time In: 909 Time Out: 919 Total Billed Treatment Time: 10 Total Billed Treatment 1 visit GT 10' JUD MICHAEL PT May 28, 2021 10:23
[2021-05-28 11:17] VITALS: BP 125/74
--- NOTE | 2021-05-28 12:27 | Discharge Summary ---
Discharge Summary Hospital Course Was the Problem List Reviewed?: Yes Problems/Dx: (1) Cannabis hyperemesis syndrome concurrent with and due to cannabis abuse Hospital Course Date of Admission: May 26, 2021 at 05:00 Admission Diagnosis : Family Physician/Provider: No,Local Physician Date of Discharge: 05/28/21 Discharge Diagnosis: Hyperemesis cannabis, hypokalemia, left hip pain Hospital Course: Hospital course: Pt had an uneventful three day hospital course after she was admitted for retractable nausea and vomiting rom hyperemesis cannabis, he received potassium supplementation and aggressive IV fluids. He felt good enough to advance his diet at discharge, left hip pain was managed by Dr. Peck. Labs and Pending Lab Test: Laboratory Tests 05/28/21 06:30: Sodium Level 136, Potassium Level 3.9, Chloride Level 106, Carbon Dioxide Level 21, Anion Gap 9, Blood Urea Nitrogen 12, Creatinine 0.74, Estimat Glomerular Filtration Rate 137, BUN/Creatinine Ratio 16, Glucose Level 73, Calcium Level 8.6, Corrected Calcium 9.2, Total Bilirubin 0.7, Aspartate Amino Transf (AST/SGOT) 16, Alanine Aminotransferase (ALT/SGPT) 17, Alkaline Phosphatase 47, Total Protein 5.9L, Albumin 3.2 05/28/21 06:33: White Blood Count 6.1, Red Blood Count 4.52, Hemoglobin 13.9, Hematocrit 42, Mean Corpuscular Volume 92, Mean Corpuscular Hemoglobin 31, Mean Corpuscular Hemoglobin Concent 33, Red Cell Distribution Width 12.2, Platelet Count 290, Mean Platelet Volume 9.4, Immature Granulocyte % (Auto) 0, Neutrophils (%) (Auto) 65, Lymphocytes (%) (Auto) 24, Monocytes (%) (Auto) 9, Eosinophils (%) (Auto) 1, Basophils (%) (Auto) 1, Neutrophils # (Auto) 4.0, Lymphocytes # (Auto) 1.5, Monocytes # (Auto) 0.6, Eosinophils # (Auto) 0.1, Basophils # (Auto) 0.0, Immature Granulocyte # (Auto) 0.0 Microbiology 05/26/21 Urine Culture - Final, Complete NO GROWTH Home Meds Active Active Prescriptions or Reported Medications Unobtainable Assessment/Pt Instructions PCP in 1 week Discharge Planning: <30 minutes discharge planning Discharge Physical Examination Vital Signs Vital Signs Date Time Temp Pulse Resp B/P (MAP) Pulse Ox O2 Delivery O2 Flow Rate FiO2 05/28/21 11:17 36.9 63 20 125/74 (91) 100 Room Air General Appearance: No Apparent Distress, WD/WN, Chronically ill Allergies: Coded Allergies: morphine (Verified Allergy, Unknown, 11/22/20) ondansetron (Verified Allergy, Unknown, 05/27/21) [facility] Discharge Summary Date of Admission May 26, 2021 at 05:00 Date of Discharge Discharge Date: May 28, 2021 Admission Diagnosis Assessment: Hyperemesis cannabis Hypokalemia, dehydration Plan: IV fluid Discharge Diagnosis Supportive care (1) Cannabis hyperemesis syndrome concurrent with and due to cannabis abuse MARIE CHEN DO May 28, 2021 12:27
--- NOTE | 2021-05-28 12:51 | Consultation - Ortho ---
Consult - Ortho Subjective Date of Exam 05/28/21 Chief Complaint Left Hip Pain HPI/Events since last exam has noted a sore area on his left hip since this hospitalization, states he notes swelling, cannot lay on that side and this seems to be the most sensitive for him Medical, Surgical History not obtained Social History not obtained Family History not obtained Review of Systems not obtained Allergies: Coded Allergies: morphine (Verified Allergy, Unknown, 11/22/20) ondansetron (Verified Allergy, Unknown, 05/27/21) jaw clentch Home Meds Discontinued Scripts Sucralfate (Carafate) 1 Gm/10 Ml Oral.susp, 1 GM PO ACHS, #100 ML Prov:KENISHA YING DO 03/14/21 Omeprazole (Omeprazole) 20 Mg Capsule.dr, 20 MG PO BID for 30 Days, #60 CAP 0 Refills Prov:THOMAS PLAZA 03/07/21 Sucralfate (Carafate) 1 Gm Tablet, 1 GM PO QIDACHS for 14 Days, #56 TAB 0 Refills Prov:THOMAS PLAZA 03/07/21 Ondansetron (Ondansetron Odt) 4 Mg Tab.rapdis, 4-8 MG PO Q6H PRN for NAUSEA/VOMITING, #20 TAB 0 Refills Prov:THOMAS PLAZA 03/07/21 Objective Exam Left Hip: No obvious swelling or deformity, very tender to touch near the tip of the greater trochanter, moves limb spontaneously without pain Vital Signs Vital Signs Date Time Temp Pulse Resp B/P (MAP) Pulse Ox O2 Delivery O2 Flow Rate FiO2 05/28/21 11:17 36.9 63 20 125/74 (91) 100 Room Air 05/28/21 08:08 37.0 58 20 116/56 (76) 97 Room Air 05/28/21 08:00 Room Air 05/28/21 07:00 63 05/28/21 03:32 36.5 75 20 118/72 (87) 99 Room Air 05/28/21 01:00 68 05/28/21 00:14 36.8 85 20 110/70 (83) 99 Room Air 05/27/21 20:00 36.1 59 22 114/67 (83) 99 Room Air 05/27/21 19:40 Room Air 12/21/21 19:00 63 05/27/21 16:00 36.0 67 20 130/58 (82) 99 Room Air 05/27/21 12:50 65 I & O 05/28/21 07:00 Intake Total 3000 ml Output Total 1300 ml Balance 1700 ml Lab Results Laboratory Tests 05/28/21 06:30: Sodium Level 136, Potassium Level 3.9, Chloride Level 106, Carbon Dioxide Level 21, Anion Gap 9, Blood Urea Nitrogen 12, Creatinine 0.74, Estimat Glomerular Filtration Rate 137, BUN/Creatinine Ratio 16, Glucose Level 73, Calcium Level 8.6, Corrected Calcium 9.2, Total Bilirubin 0.7, Aspartate Amino Transf (AST/SGOT) 16, Alanine Aminotransferase (ALT/SGPT) 17, Alkaline Phosphatase 47, Total Protein 5.9L, Albumin 3.2 05/28/21 06:33: White Blood Count 6.1, Red Blood Count 4.52, Hemoglobin 13.9, Hematocrit 42, Mean Corpuscular Volume 92, Mean Corpuscular Hemoglobin 31, Mean Corpuscular Hemoglobin Concent 33, Red Cell Distribution Width 12.2, Platelet Count 290, Mean Platelet Volume 9.4, Immature Granulocyte % (Auto) 0, Neutrophils (%) (Auto) 65, Lymphocytes (%) (Auto) 24, Monocytes (%) (Auto) 9, Eosinophils (%) (Auto) 1, Basophils (%) (Auto) 1, Neutrophils # (Auto) 4.0, Lymphocytes # (Auto) 1.5, Monocytes # (Auto) 0.6, Eosinophils # (Auto) 0.1, Basophils # (Auto) 0.0, Immature Granulocyte # (Auto) 0.0 Microbiology 05/26/21 Urine Culture - Final, Complete NO GROWTH Imaging CT of pelvis reviewed and did not demonstrate any visualized areas of swelling in the soft tissue Assessment and Plan Assessment Left Hip Contusion vs. Trochanteric Bursitis Problem List Left Hip Contusion vs. Trochanteric Bursitis Plan Observe Ice Final Diagonsis Left Hip Contusion vs. Trochanteric Bursitis Level of the visit: Level 3 DANY ONEILL MD May 28, 2021 12:51
== END 2021-05-28 15:00 | disposition home or self-care (01) ==
LOC: EDUNIT# 03:00 → ER 03:01 → 4TH 05:00
PROVIDERS: ADMIT Family Medicine; ATTEND Internal Medicine
DX: R11.10 Vomiting, unspecified (principal); E87.6 Hypokalemia; E87.3 Alkalosis; M25.552 Pain in left hip; Z87.11 Personal history of peptic ulcer disease; F41.9 Anxiety disorder, unspecified; F32.A Depression, unspecified; F10.10 Alcohol abuse, uncomplicated; F12.90 Cannabis use, unspecified, uncomplicated; F19.90 Other psychoactive substance use, unspecified, uncomplicated; Z79.899 Other long term (current) drug therapy
CPT/HCPCS: 74176; 80053 ×3; 80306; 81000; 82150; 82947; 83690; 83735 ×2; 85025 ×3; 87088; 87636; 96361; 96374; 96375; 96376; 97116; 97161; 99284; G0378; G0480; 36415; 80320

== ENCOUNTER 2021-11-28 04:52 | Emergency (ER) | payer SELFPAY ==
[~2021-11-28] VITALS: Ht 165.1 cm; Wt 72.8 kg
[2021-11-28] MEDS ORDERED: METOCLOPRAMIDE INJ 10 MG/2 ML (REGLAN) IVP STA (05:05)
[2021-11-28] MEDS ORDERED: LACTATED RINGERS 1,000 ML IV ONE ×2 (05:15→08:45)
[2021-11-28] MEDS ORDERED: PANTOPRAZOLE 40 MG (PROTONIX) VIAL IV ONE (05:15)
--- NOTE | 2021-11-28 05:18 | ED GI ---
General Stated Complaint: ABD PAIN Source of Information: Patient (VERY DIFFICULT HISTORIAN), Old Records (JAY JAY PHILLIPS DO) History of Present Illness Date Seen by Provider: Nov 28, 2021 Time Seen by Provider: 05:04 Initial Comments PT ARRIVES VIA POV C/O NAUSEA/VOMITING AND ABDOMINAL PAIN SINCE LAST NIGHT PT HAS VOMITED UNKNOWN NUMBER OF TIMES STATES PAIN IS ALL OVER ABDOMEN AND IS BURNING AND CRAMPING--WANTING PAIN MEDICATIONS SOON HE ARRIVES HAD NORMAL BM YESTERDAY NO FEVER VOIDING NORMALLY THIS IS A CHRONIC PROBLEM, AND THIS IS PT'S 6TH VISIT IN THE LAST YEAR, SINCE HE MOVED HERE A YEAR AGO FROM [place] ALL VISITS HERE HAVE BEEN FOR THIS SAME PROBLEM PT HAS LONGSTANDING ALCOHOL AND DRUG ABUSE STATES HE DRINKS AT LEAST A PINT OF HARD LIQUOR + BEER A DAY--WILL NOT STATE HOW MUCH BEER HE NORMALLY DRINKS. STATES HE ONLY HAD 2 BEERS TODAY. STATES SHE SMOKES METH AND MARIJUANA ON A REGULAR BASIS WELL. PT CLAIMS HE HAS BEEN DX WITH ULCERS. PT HAS NEVER HAD ANY ENDOSCOPIES, AND NO PRIOR ABDOMINAL SURGERIES PT HAS BEEN PRESCRIBED GI MEDICATIONS, INCLUDING PROTONIX AND CARAFATE ON MULTIPLE VISITS, BUT PT DOES NOT TAKE THEM PT HAS NOT FOLLOWED UP WITH ANYONE FOR THIS PROBLEM PT HAS NOT HAD COVID OR FLU VACCINES PCP: PT HAS BEEN TO [facility] [place] IN [place], BUT STATES HE DOES NOT GO THERE ANYMORE. STATES HE DOES NOT SEE ANY DR ANYWHERE. (JAY JAY PHILLIPS DO) Allergies and Home Medications Allergies Coded Allergies: morphine (Verified Allergy, Unknown, 11/22/20) ondansetron (Verified Allergy, Unknown, 05/27/21) vijay valencia Patient Home Medication List Home Medication List Reviewed: Yes (THOMAS PLAZA) Hydrocodone/Acetaminophen (Hydrocodone-Acetamin 5-325 mg) 5 Mg-325 Mg Tablet, 1 TAB PO Q4H PRN for PAIN-MODERATE (5-7) Prescribed by: THOMAS PLAZA on 11/28/21 1237 Promethazine HCl (Promethazine Tablet) 25 Mg Tablet, 25 MG PO Q6H PRN for NAUSEA/VOMITING Prescribed by: THOMAS PLAZA on 11/28/21 1000 Sucralfate (Carafate) 1 Gram Tablet, 1 GM PO QIDACHS Prescribed by: THOMAS PLAZA on 11/28/21 1237 Review of Systems Review of Systems Constitutional: no symptoms reported EENTM: No Symptoms Reported Respiratory: No Symptoms Reported Cardiovascular: No Symptoms Reported Gastrointestinal: See HPI Genitourinary: No Symptoms Reported Musculoskeletal: no symptoms reported Skin: no symptoms reported Endocrine: No Symptoms Reported Hematologic/Lymphatic: No Symptoms Reported (JAY JAY PHILLIPS DO) Past Olkxvmc-Pigcwh-Ibrjhf Hx Patient Social History Tobacco Use?: Yes Tobacco type used: Cigarettes Smoking Status: Current Everyday Smoker Substance use?: Yes Substance type: Methamphetamine, Misuse of prescript meds, Marijuana Alcohol Use?: Yes Alcohol type: Beer, Hard Liquor Alcohol Frequency: Daily (JAY JAY PHILLIPS DO) Past Medical History Surgery/Hospitalization HX: anx/dep, alcohol use, gastric ulcera, cyclic vomitting syndrome Surgeries: No Respiratory: No Cardiac: No Neurological: No Genitourinary: No Gastrointestinal: Yes (CHRONIC NAUSEA/VOMITING/ABDOMINAL PAIN ) Musculoskeletal: No Endocrine: No HEENT: No Cancer: No Psychosocial: Yes (POLYSUBSTANCE ABUSE) Anxiety, Depression Integumentary: No (JAY JAY PHILLIPS DO) Family Medical History SOCIAL HISTORY: -SMOKES 1-2 PPD -ETOH--DRINKS HARD LIQUOR + BEER DAILY--STATES HE DRINKS AT LEAST A PINT OF HARD LIQUOR/DAY, AND DOES NOT STATE HOW MUCH BEER HE DRINKS DAILY -DRUGS--SMOKES METH AND MARIJUANA ON A REGULAR BASIS. UDS HAS ALSO TESTED + FOR BARBUTURATES AND TRICYCLIC ON PRIOR VISITS. (JAY JAY PHILLIPS DO) Physical Exam Vital Signs Vital Signs - First Documented 11/28/21 05:28 Temp 36.0 Pulse 59 Resp 20 B/P (MAP) 140/102 (115) Pulse Ox 100 O2 Delivery Room Air (THOMAS PLAZA) Vital Signs Capillary Refill : (JAY JAY PHILLIPS DO) Height/Weight/BMI Height: '" Weight: lbs. oz. kg; 26.40 BMI Method: General Appearance: other (EXTREMELY DRAMATIC AND OUT OF CONTROL--MOANING AND WAILING VERY LOUDLY--CAN HEAR HIM FROM THE ER WAITING ROOM. THIS BEHAVIOR STOPS WHEN DISTRACTED OR WHEN ASKED TO STOP. PT WITH CONSTANT MOVEMENTS, KICKING THE BED, THRASHING ALL OVER, HYPERVENTILATING. WILL NOT ANSWER QUESTIONS ON ARRIVAL DUE TO THIS BEHAVIOR. MARKEDLY EXAGGERATED PAIN RESPONSE--WAILS AND JERKS EVEN BEFORE HE IS TOUCHED. ALL THIS BEHAVIOR ALSO STOPS WHEN STAFF LEAVE THE ROOM) Neck: normal inspection Respiratory: normal breath sounds, no respiratory distress, no accessory muscle use Cardiovascular: regular rate, rhythm, no murmur Gastrointestinal: soft Extremities: normal inspection, normal capillary refill Neurologic/Psychiatric: no motor/sensory deficits, alert, oriented x 3 Skin: normal color (PT IS BLACK), warm/dry; No rash (JACQUELINE,JAY JAY K DO) General Appearance: WD/WN, no apparent distress HEENT: PERRL/EOMI (4mm marquis), pharynx normal (THOMAS PLAZA) Progress/Results/Core Measures Results/Orders Lab Results Laboratory Tests Test 11/28/21 05:13 11/28/21 05:20 11/28/21 06:05 Range/Units SARS-CoV-2 RNA (RT-PCR) Not Detected Not Detecte White Blood Count 11.0 4.3-11.0 10^3/uL Red Blood Count 4.66 4.30-5.52 10^6/uL Hemoglobin 14.6 13.3-17.7 g/dL Hematocrit 44 40-54 % Mean Corpuscular Volume 95 80-99 fL Mean Corpuscular Hemoglobin 31 25-34 pg Mean Corpuscular Hemoglobin Concent 33 32-36 g/dL Red Cell Distribution Width 13.6 10.0-14.5 % Platelet Count 352 130-400 10^3/uL Mean Platelet Volume 9.3 9.0-12.2 fL Immature Granulocyte % (Auto) 0 % Neutrophils (%) (Auto) 76 H 42-75 % Lymphocytes (%) (Auto) 15 12-44 % Monocytes (%) (Auto) 5 0-12 % Eosinophils (%) (Auto) 2 0-10 % Basophils (%) (Auto) 1 0-10 % Neutrophils # (Auto) 8.4 H 1.8-7.8 10^3/uL Lymphocytes # (Auto) 1.7 1.0-4.0 10^3/uL Monocytes # (Auto) 0.6 0.0-1.0 10^3/uL Eosinophils # (Auto) 0.3 0.0-0.3 10^3/uL Basophils # (Auto) 0.1 0.0-0.1 10^3/uL Immature Granulocyte # (Auto) 0.0 0.0-0.1 10^3/uL Sodium Level 143 135-145 MMOL/L Potassium Level 4.0 3.6-5.0 MMOL/L Chloride Level 105 98-107 MMOL/L Carbon Dioxide Level 27 21-32 MMOL/L Anion Gap 11 5-14 MMOL/L Blood Urea Nitrogen 13 7-18 MG/DL Creatinine 1.02 0.60-1.30 MG/DL Estimat Glomerular Filtration Rate 91 BUN/Creatinine Ratio 13 Glucose Level 88 70-105 MG/DL Calcium Level 9.3 8.5-10.1 MG/DL Corrected Calcium 9.4 8.5-10.1 MG/DL Magnesium Level 1.9 1.6-2.4 MG/DL Total Bilirubin 0.3 0.1-1.0 MG/DL Aspartate Amino Transf (AST/SGOT) 22 5-34 U/L Alanine Aminotransferase (ALT/SGPT) 22 0-55 U/L Alkaline Phosphatase 55 40-136 U/L Total Protein 7.0 6.4-8.2 GM/DL Albumin 3.9 3.2-4.5 GM/DL Amylase Level 97 25-125 U/L Lipase 53 8-78 U/L Acetaminophen Level < 10 L 10-30 UG/ML Serum Alcohol < 10 <10 MG/DL Urine Color YELLOW Urine Clarity CLEAR Urine pH 8.5 5-9 Urine Specific [place] 1.015 L 1.016-1.022 Urine Protein NEGATIVE NEGATIVE Urine Glucose (UA) NEGATIVE NEGATIVE Urine Ketones NEGATIVE NEGATIVE Urine Nitrite NEGATIVE NEGATIVE Urine Bilirubin NEGATIVE NEGATIVE Urine Urobilinogen 0.2 < = 1.0 MG/DL Urine Leukocyte Esterase NEGATIVE NEGATIVE Urine RBC (Auto) NEGATIVE NEGATIVE Urine RBC NONE /HPF Urine WBC NONE /HPF Urine Squamous Epithelial Cells RARE /HPF Urine Crystals NONE /LPF Urine Bacteria NEGATIVE /HPF Urine Casts NONE /LPF Urine Mucus NEGATIVE /LPF Urine Culture Indicated NO Urine Opiates Screen NEGATIVE NEGATIVE Urine Oxycodone Screen NEGATIVE NEGATIVE Urine Methadone Screen NEGATIVE NEGATIVE Urine Propoxyphene Screen NEGATIVE NEGATIVE Urine Barbiturates Screen NEGATIVE NEGATIVE Ur Tricyclic Antidepressants Screen NEGATIVE NEGATIVE Urine Phencyclidine Screen NEGATIVE NEGATIVE Urine Amphetamines Screen NEGATIVE NEGATIVE Urine Methamphetamines Screen NEGATIVE NEGATIVE Urine Benzodiazepines Screen NEGATIVE NEGATIVE Urine Cocaine Screen NEGATIVE NEGATIVE Urine Cannabinoids Screen POSITIVE H NEGATIVE (THOMAS PLAZA) My Orders Orders - THOMAS PLAZA Lidocaine 2% Viscous 15 Ml (Xylocaine Vi (11/28/21 07:00) Antacid Suspension (Mylanta Suspension (11/28/21 07:00) Droperidol Inj (Ed Only) (Inapsine Inj ( (11/28/21 07:30) Diphenhydramine Injection (Benadryl Inje (11/28/21 08:45) Ed Iv/Invasive Line Start (11/28/21 08:41) Lactated Ringers (Lr 1000 Ml Iv Solution (11/28/21 08:45) Ketorolac Injection (Toradol Injection) (11/28/21 10:00) Lorazepam Tablet (Ativan Tablet) (11/28/21 10:00) Hydrocodone/Apap 5/325 Tablet (Lortab 5 (11/28/21 11:15) Famotidine Tablet (Pepcid Tablet) (11/28/21 11:15) (THOMAS PLAZA) Medications Given in ED Current Medications Medications Dose Ordered Sig/Wade Route Start Time Stop Time Status Last Admin Dose Admin Acetaminophen/ Hydrocodone Bitart 2 ea ONCE ONCE PO 11/28/21 11:15 11/28/21 11:16 DC 11/28/21 11:16 2 EA Al Hydrox/Mg Hydrox/Simethicone 30 ml ONCE ONCE PO 11/28/21 07:00 11/28/21 07:01 DC 11/28/21 07:17 30 ML Diphenhydramine HCl 25 mg ONCE ONCE IVP 11/28/21 08:45 11/28/21 08:46 DC 11/28/21 08:47 25 MG Droperidol 2.5 mg ONCE ONCE IV 11/28/21 07:30 11/28/21 07:31 DC 11/28/21 07:23 2.5 MG Famotidine 20 mg ONCE ONCE PO 11/28/21 11:15 11/28/21 11:16 DC 11/28/21 11:16 20 MG Lactated Ringer's 1,000 ml @ 0 mls/hr Q0M ONCE IV 11/28/21 08:45 11/28/21 08:46 DC 11/28/21 08:47 1,000 MLS/HR Lidocaine HCl 15 ml ONCE ONCE PO 11/28/21 07:00 11/28/21 07:01 DC 11/28/21 07:17 15 ML (THOMAS PLAZA) Vital Signs/I&O 11/28/21 11/28/21 05:28 12:55 Temp 36.0 36.0 Pulse 59 62 Resp 20 18 B/P (MAP) 140/102 (115) 132/92 Pulse Ox 100 100 O2 Delivery Room Air Room Air (THOMAS PLAZA) Progress Progress Note : Progress Note PLACED IN ISOLATION ROOM PPE WORN COVID TESTING DONE GIVEN: -IV FLUIDS -REGLAN 0600--CARE TURNED OVER TO DR. PLAZA, ALL STUDIES PENDING (JAY JAY PHILLIPS DO) Progress Note #1: Time: 08:42 Progress Note Assumed care of the patient at shift change. He was having some loud retching so we let him finish his fluids and let the medicines work. He fell asleep. When he woke him up he says he felt like the nausea is better and wanted something for his ulcers. We ordered a GI cocktail which he agreed to. When the nurse went to give it to him he started having loud, dry retching noises again. We gave him droperidol 2.5 mg IV. He then fell back asleep for about half an hour to 45 minutes. We checked on him and since he was no longer feeling nauseated he wanted to try the GI cocktail again. When the nurse went back in the room he started having retching, dry heaving again. He has not vomited anything up. We will give him 25 mg of Benadryl IV and another liter of fluids before reattempting GI cocktail. Progress Note #2: Time: 09:57 Progress Note Patient was able to take the GI cocktail without retching. He is somnolent but arouses and sits up on the side of the bed to take the medicine on his own. We will make sure he has some Phenergan for home. We will also give him a dose of Toradol to help with his stomachache. Milligram of Ativan in case he is having some withdrawal from alcohol. Progress Note #3: Time: 11:09 Progress Note On repeat examination the patient is sleeping softly, easily arousable. States his pain is still about 8 or 9 out of 10 and got no relief from either the GI cocktail or the Toradol. He states he cannot take morphine but has taken hydrocodone in the past. We will give him 2 [place] 5 x 325's and reexamine him. He is no longer retching and says his nausea is under control. Pepcid 20 mg p.o. Progress Note #4: Time: 12:27 Progress Note Patient is easily arousable and answers some questions. He states he is not having any nausea still feels messed up. Has had scopes done by Dr. GONZALES in the past. We are going to recommend him follow-up with Dr. GONZALES. When I tried to talk to him about discharge planning the patient climbed up and refused to answer any further questions. We will provide him with Carafate, pain medicine, nausea medicine Phenergan and return precautions. The patient's behavior since he has been here has been fairly manipulative. He will deny any nausea or vomiting but gets upset whenever we talk about discharging and starts having loud, obnoxious retching. He also will cover his head with a blanket and refused to speak with us unless we uncover his head and insist that he speak to us. He speaks clearly answers questions appropriately has no slurred speech and is oriented to person time and place. (THOMAS PLAZA) Departure Impression Primary Impression: CHRONIC NAUSEA/VOMITING AND ABDOMINAL PAIN Additional Impressions: Cannabinoid hyperemesis syndrome Alcoholism Disposition: 01 HOME, SELF-CARE Condition: Stable Departure-Patient Inst. Decision time for Depature: 12:35 (THOMAS PLAZA) Referrals: ODALIS GONZALES MD NO,LOCAL PHYSICIAN (PCP) Primary Care Physician Patient Instructions: Nausea and Vomiting, Adult (DC) Add. Discharge Instructions: Phenergan 1 tablet every 6 hours as needed for nausea or vomiting. Benadryl 1 tablet every 6 hours as needed for nausea or vomiting. Drink plenty of fluids and stick to a clear liquid diet until your belly is feeling better. Tums, Rolaids, Mylanta, Maalox as needed for pain. Tylenol 650 mg every 6 hours as needed for pain. Carafate 1 tablet half an hour before meals and at bedtime for a total of 4 times a day for the next 2 weeks to protect the lining of your stomach. Continue taking your omeprazole/Prilosec. I recommend 20 mg twice a day for the next 30 days. Follow-up with Dr. GONZALES, general surgery for reexamination next week. Return to the ER for intractable nausea and vomiting or other worrisome symptoms. Scripts Hydrocodone/Acetaminophen (Hydrocodone-Acetamin 5-325 mg) 5 Mg-325 Mg Tablet 1 TAB PO Q4H PRN for PAIN-MODERATE (5-7), #10 TAB 0 Refills Prov: THOMAS PLAZA 11/28/21 Sucralfate (Carafate) 1 Gram Tablet 1 GM PO QIDACHS for 14 Days, #56 TAB 0 Refills Prov: THOMAS PLAZA 11/28/21 Promethazine HCl (Promethazine Tablet) 25 Mg Tablet 25 MG PO Q6H PRN for NAUSEA/VOMITING, #15 TAB 0 Refills Prov: THOMAS PLAZA 11/28/21 Copy Copies To 1: ODLAIS GONZALES MD, LISA K DO Nov 28, 2021 05:18 THOMAS PLAZA Nov 28, 2021 08:44
[2021-11-28 05:37] LABS: BASOPHILS # (AUTO) 0.1 10^3/uL (0.0-0.1); BASOPHILS % (AUTO) 1 % (0-10); EOSINOPHILS # (AUTO) 0.3 10^3/uL (0.0-0.3); EOSINOPHILS % (AUTO) 2 % (0-10); HEMATOCRIT 44 % (40-54); HEMOGLOBIN 14.6 g/dL (13.3-17.7); LYMPHOCYTES # (AUTO) 1.7 10^3/uL (1.0-4.0); LYMPHOCYTES % (AUTO) 15 % (12-44); MEAN CORPUSCULAR HEMOGLOBIN 31 pg (25-34); MEAN CORPUSCULAR HGB CONC 33 g/dL (32-36); MEAN CORPUSCULAR VOLUME 95 fL (80-99); MEAN PLATELET VOLUME 9.3 fL (9.0-12.2); MONOCYTES # (AUTO) 0.6 10^3/uL (0.0-1.0); MONOCYTES % (AUTO) 5 % (0-12); NEUTROPHILS # (AUTO) 8.4 10^3/uL (1.8-7.8); NEUTROPHILS % (AUTO) 76 % (42-75); PLATELET COUNT 352 10^3/uL (130-400)
[2021-11-28 05:45] LABS: CHLORIDE 105 MMOL/L (98-107); SODIUM 143 MMOL/L (135-145)
[2021-11-28 05:46] LABS: ALBUMIN 3.9 GM/DL (3.2-4.5)
[2021-11-28 05:47] LABS: CALCIUM 9.3 MG/DL (8.5-10.1)
[2021-11-28 05:48] LABS: AMYLASE 97 U/L (25-125); GLUCOSE 88 MG/DL (70-105)
[2021-11-28 05:49] LABS: CARBON DIOXIDE 27 MMOL/L (21-32)
[2021-11-28 05:50] LABS: BILIRUBIN,TOTAL 0.3 MG/DL (0.1-1.0)
[2021-11-28 05:52] LABS: ALKALINE PHOSPHATASE 55 U/L (40-136); CREATININE SERUM 1.02 MG/DL (0.60-1.30); GFR ESTIMATED 91
[2021-11-28 05:53] LABS: BUN/CREATININE RATIO 13
[2021-11-28 05:55] LABS: ALANINE AMINOTRANSFERASE 22 U/L (0-55); MAGNESIUM 1.9 MG/DL (1.6-2.4)
[2021-11-28 05:56] LABS: LIPASE 53 U/L (8-78)
[2021-11-28 06:02] LABS: ACETAMINOPHEN < 10 UG/ML (10-30)
[2021-11-28 06:24] LABS: BILIRUBIN,URINE NEGATIVE (NEGATIVE); CLARITY,URINE CLEAR; COLOR,URINE YELLOW; GLUCOSE, URINE (UA) NEGATIVE (NEGATIVE); KETONES,URINE NEGATIVE (NEGATIVE); LEUKOCYTE ESTERASE ,URINE NEGATIVE (NEGATIVE); NITRITE,URINE NEGATIVE (NEGATIVE); PH,URINE 8.5 (5-9); PROTEIN,URINE NEGATIVE (NEGATIVE)
[2021-11-28 06:33] LABS: BACTERIA,URINE NEGATIVE /HPF; SQUAMOUS EPITHELIAL CELL,UR RARE /HPF
[2021-11-28 06:35] LABS: AMPHETAMINE SCREEN, URINE NEGATIVE (NEGATIVE); BARBITURATE SCREEN URINE NEGATIVE (NEGATIVE); BENZODIAZEPINES SCREEN URINE NEGATIVE (NEGATIVE); CANNABINOID SCREEN, URINE POSITIVE (NEGATIVE); COCAINE SCREEN URINE NEGATIVE (NEGATIVE); METHADONE STAT NEGATIVE (NEGATIVE); OPIATE SCREEN URINE NEGATIVE (NEGATIVE); OXYCODONE STAT NEGATIVE (NEGATIVE); PROPOXYPHENE STAT NEGATIVE (NEGATIVE); TRICYCLIC ANTIDEPRESSANTS SCRE NEGATIVE (NEGATIVE)
[2021-11-28] MEDS ORDERED: LIDOCAINE 2% VISCOUS 15 ML UDC PO ONE (07:00)
[2021-11-28] MEDS ORDERED: ANTACID SUSP 30 ML UDC (MYLANTA) PO ONE (07:00)
[2021-11-28] MEDS ORDERED: DROPERIDOL 5 MG/2 ML (INAPSINE) ED ONLY! IV ONE (07:30)
[2021-11-28] MEDS ORDERED: diphenhydrAMINE 50 MG/ML INJ (BENADRYL) IVP ONE (08:45)
[2021-11-28] MEDS ORDERED: LORazepam 0.5 MG (ATIVAN) TABLET PO STA (10:00)
[2021-11-28] MEDS ORDERED: PROM25TA14 PO (10:00)
[2021-11-28] MEDS: KETOROLAC 30 MG/ML VIAL IVP ONE ×2 (10:08→10:12)
[2021-11-28] MEDS ORDERED: FAMOTIDINE 20 MG (PEPCID) TABLET PO ONE (11:15)
[2021-11-28] MEDS ORDERED: HYDROcodone/APAP 5 MG/325 MG (LORTAB) TAB PO ONE (11:15)
[2021-11-28] MEDS ORDERED: ACHD5005 PO (12:37)
[2021-11-28] MEDS ORDERED: SUCR1TAB36 PO (12:37)
[2021-11-28 12:55] VITALS: BP 132/92
== END 2021-11-28 12:56 | disposition home or self-care (01) ==
LOC: EDUNIT# 04:52 → ER 04:58
DX: F12.188 Cannabis abuse with other cannabis-induced disorder (principal); R11.2 Nausea with vomiting, unspecified; F10.229 Alcohol dependence with intoxication, unspecified; F17.210 Nicotine dependence, cigarettes, uncomplicated; Z20.822 Contact with and (suspected) exposure to COVID-19; Y90.0 Blood alcohol level of less than 20 mg/100 ml
CPT/HCPCS: 80053; 80306; 81000; 82150; 83690; 83735; 85025; 87636; 93041; 99284; G0480 ×2; 36415; 80320; 80329